=== PATIENT | female | born 1950 | race Caucasian/White ===

== ENCOUNTER 2016-09-28 16:05 | Outpatient (CLI) | payer MEDICAID, MEDICARE | END 2016-09-28 16:06 | disposition home or self-care (01) | DX: M17.0 Bilateral primary osteoarthritis of knee (principal) ==

== ENCOUNTER 2018-11-09 11:09 | Outpatient (CLI) | payer MEDICARE ==
--- NOTE | 2018-11-09 12:11 | XRAY Report ---
Reason: MODERATE PERSISTENT ASTHMA Procedure Date: 11/09/2018 Accession Number: [id number] / [id number] Procedure: XR - Chest 2 View X-Ray CPT Code: 69074 FULL RESULT: EXAM: CHEST RADIOGRAPHY EXAM DATE: 11/09/2018 11:20 AM. CLINICAL HISTORY: Moderate persistent asthma. COMPARISON: CHEST 2 VIEW PA/LAT 08/18/2014 3:59 PM. TECHNIQUE: 2 views. FINDINGS: Examination sensitivity for lung pathology is limited by grid artifact. Lungs/Pleura: No focal opacities evident. No pleural effusion. No pneumothorax. Normal volumes. Mediastinum: Heart and mediastinal contours are stable, mild borderline cardiomegaly. Other: None. IMPRESSION: No acute cardiopulmonary abnormality. RADIA
== END 2018-11-09 11:10 | disposition home or self-care (01) ==
LOC: DI 11:09
PROVIDERS: ATTEND Physician Assistant
DX: J45.40 Moderate persistent asthma, uncomplicated (principal)
CPT/HCPCS: 71046

== ENCOUNTER 2021-10-18 17:00 | Outpatient (CLI) | payer MEDICARE ==
--- NOTE | 2021-10-18 17:55 | XRAY Report ---
PROCEDURE: Chest 2 View X-Ray INDICATIONS: COUGH TECHNIQUE: 2 view(s) of the chest. COMPARISON: 11/09/2018 FINDINGS: Surgical changes and devices: None. Lungs and pleura: No pleural effusions or pneumothorax. Lungs are clear. Mediastinum: Mediastinal contours are normal. Heart size is normal. Bones and chest wall: No suspicious bony abnormalities. Soft tissues appear unremarkable. IMPRESSION: No evidence acute pulmonary process. Reviewed by: Nikita Vernon MD on 10/18/2021 5:54 PM PDT Approved by: Nikita Vernon MD on 10/18/2021 5:54 PM PDT Station ID: [id number]
[2021-10-18 20:14] LABS: BASOPHILS # (AUTO) 0.1 10^3/uL (0.0-0.1); BASOPHILS % (AUTO) 0.7 %; EOSINOPHILS # (AUTO) 0.2 10^3/uL (0.0-0.7); EOSINOPHILS % (AUTO) 3.5 %; HCT - HEMATOCRIT 39.8 % (37.0-47.0); HGB - HEMOGLOBIN 12.5 g/dL (12.0-16.0); LYMPHOCYTES # (AUTO) 1.3 10^3/uL (1.5-3.5); LYMPHOCYTES % (AUTO) 19.2 %; MEAN CORPUSCULAR HEMOGLOBIN 32.4 pg (27.0-31.0); MEAN CORPUSCULAR HGB CONC 31.4 g/dL (32.0-36.0); MEAN CORPUSCULAR VOLUME 103.1 fL (81.0-99.0); MEAN PLATELET VOLUME 9.9 fL (7.9-10.8); MONOCYTES # (AUTO) 0.7 10^3/uL (0.0-1.0); MONOCYTES % (AUTO) 10.4 %; NEUTROPHILS # (AUTO) 4.5 10^3/uL (1.5-6.6); NEUTROPHILS % (AUTO) 65.6 %; PLT - PLATELET COUNT 353 10^3/uL (130-450); RED BLOOD COUNT 3.86 10^6/uL (4.20-5.40); RED CELL DISTRIBUTION WIDTH 12.8 % (12.0-15.0); WHITE BLOOD COUNT 6.9 x10^3/uL (4.8-10.8)
== END 2021-10-18 17:01 | disposition home or self-care (01) ==
LOC: LAB.S 17:00
PROVIDERS: ATTEND Nurse Practitioner Family
DX: R05.9 Cough, unspecified (principal)
CPT/HCPCS: 36415; 85025

== ENCOUNTER 2021-12-22 10:36 | Outpatient (CLI) | payer MEDICARE ==
[2021-12-22 14:26] LABS: BASOPHILS % (AUTO) 0.7 %; EOSINOPHILS # (AUTO) 0.3 10^3/uL (0.0-0.7); HCT - HEMATOCRIT 39.2 % (37.0-47.0); HGB - HEMOGLOBIN 12.7 g/dL (12.0-16.0); LYMPHOCYTES % (AUTO) 17.5 %; MEAN CORPUSCULAR HEMOGLOBIN 32.1 pg (27.0-31.0); MEAN CORPUSCULAR HGB CONC 32.4 g/dL (32.0-36.0); MEAN PLATELET VOLUME 10.6 fL (7.9-10.8); MONOCYTES # (AUTO) 0.4 10^3/uL (0.0-1.0); MONOCYTES % (AUTO) 6.5 %; NEUTROPHILS # (AUTO) 3.9 10^3/uL (1.5-6.6); NEUTROPHILS % (AUTO) 68.1 %; PLT - PLATELET COUNT 296 10^3/uL (130-450); RED BLOOD COUNT 3.96 10^6/uL (4.20-5.40); RED CELL DISTRIBUTION WIDTH 13.4 % (12.0-15.0); WHITE BLOOD COUNT 5.7 x10^3/uL (4.8-10.8)
[2021-12-22 14:44] LABS: ALBUMIN 4.2 g/dL (3.2-5.5); ALBUMIN/GLOBULIN RATIO 1.6 (1.0-2.2); ALKALINE PHOSPHATASE 48 IU/L (42-121); ALT ALANINE AMINOTRANSFERASE 14 IU/L (10-60); AST ASPARTATE AMINOTRANSFERASE 18 IU/L (10-42); BUN - BLOOD UREA NITROGEN 21 mg/dL (6-20); CALCIUM 9.5 mg/dL (8.5-10.3); CARBON DIOXIDE - CO2 30 mmol/L (21-32); CHLORIDE 99 mmol/L (101-111); CHOL/HDL RATIO 3.2 (<4.4); CHOLESTEROL 232 mg/dL; CREATININE 0.8 mg/dL (0.4-1.0); GAMMA GLUTAMYL TRANSPEPTIDASE 15 IU/L (8-38); GFR - MDRD 71 (>89); GLUCOSE 124 mg/dL (70-100); HDL CHOLESTEROL 73 mg/dL; LDL CHOLESTEROL,CALCULATED 133 mg/dL; LDL/HDL RATIO 1.8 (<4.4); POTASSIUM 4.1 mmol/L (3.5-5.0); SODIUM 135 mmol/L (135-145); TOTAL PROTEIN 6.9 g/dL (6.7-8.2); TRIGLYCERIDES 130 mg/dL; VLDL CHOLESTEROL 26 mg/dL
[2021-12-22 14:58] LABS: THYROID STIMULATING HORMONE 1.63 uIU/mL (0.34-5.60)
[2021-12-22 15:06] LABS: FOLATE 10.22 ng/mL (5.90 - >24.8)
[2021-12-22 20:46] LABS: ESTIMATED AVERAGE GLUCOSE 108 mg/dL (70-100); HEMOGLOBIN A1c% 5.4 % (4.27-6.07)
== END 2021-12-22 10:37 | disposition home or self-care (01) ==
LOC: LAB.S 10:36
PROVIDERS: ATTEND Nurse Practitioner Family
DX: I10 Essential (primary) hypertension (principal); E03.9 Hypothyroidism, unspecified; R73.01 Impaired fasting glucose; E78.2 Mixed hyperlipidemia; D53.9 Nutritional anemia, unspecified; R05.9 Cough, unspecified
CPT/HCPCS: 36415; 80053; 80061; 82607; 82746; 82977; 83036; 83721; 84443; 85025

== ENCOUNTER 2022-03-02 13:24 | Outpatient (CLI) | payer MEDICARE ==
--- NOTE | 2022-03-08 10:06 | Mammography Report ---
BILATERAL DIGITAL SCREENING MAMMOGRAM 3D/2D: 03/02/2022 CLINICAL: Routine screening. Family history of breast cancer. Comparison is made to exam dated: 08/23/2008 mammogram - [facility]. Both breasts are almost entirely fatty (category a/<25% glandular tissue). There are benign vascular calcifications in both breasts. No significant masses, calcifications, or other findings are seen in either breast. There has been no significant interval change. IMPRESSION: BENIGN There is no mammographic evidence of malignancy. A 1 year screening mammogram is recommended. Based on the Tyrer Cuzick model (a risk assessment model) the patients lifetime risk is 2.5% and her 10 year risk is 1.7%. According to the ACR, ACS, and NCCN guidelines, an annual breast MRI exam connor g with mammogram is recommended if the patients lifetime risk is 20% or greater. This exam was interpreted at Station ID: [id number]. NOTE: For mammograms, a report in lay terms will be sent to the patient. Approximately 15% of breast malignancies will not be visualized mammographically. In the management of a palpable breast mass, a negative mammogram must not discourage biopsy of a clinically suspicious lesion. Electronically Signed By: Olamide rivero/kourtney:03/08/2022 09:39:44 ACR BI-RADS Category 2: Benign Finding(s) 3342F PARENCHYMAL PATTERN: (F) - The breast(s) demonstrate(s) diffuse fatty replacement. BI-RADS CATEGORY: (2) - 2 RECOMMENDATION: (ANNUAL) - Recommend routine annual screening mammography. [id number] 1 year screening LATERALITY: (B)
== END 2022-03-02 13:25 | disposition home or self-care (01) ==
LOC: DI.S 13:24
PROVIDERS: ATTEND Nurse Practitioner Family
DX: Z12.31 Encounter for screening mammogram for malignant neoplasm of breast (principal); Z80.3 Family history of malignant neoplasm of breast

== ENCOUNTER 2022-03-02 13:45 | Outpatient (CLI) | payer MEDICARE ==
--- NOTE | 2022-03-02 18:37 | XRAY Report ---
PROCEDURE: Knee 3 View BILAT INDICATIONS: BILATERAL KNEE PAIN TECHNIQUE: 3 views of each knee were obtained COMPARISON: None. FINDINGS: Bones: On the right, there is severe medial compartment joint space narrowing with marginal osteophy deandre and subchondral sclerosis. Moderate patellofemoral joint space and narrowing noted as well. Moder ate joint effusion. On the left, severe medial and moderate lateral compartmental joint space narrowing with marginal ost eophytes. Moderate joint effusion and mild patellofemoral joint space narrowing. Soft tissues: No joint effusion. No suspicious soft tissue calcifications. IMPRESSION: Moderate to severe bilateral osteoarthritis with moderate joint effusions, greater in the left Reviewed by: Romel New MD on 03/02/2022 5:36 PM AKPASTORA Approved by: Romel New MD on 03/02/2022 5:36 PM AKPASTORA Station ID: [id number]
== END 2022-03-02 23:59 | disposition home or self-care (01) ==
LOC: DI 13:45
PROVIDERS: ATTEND Nurse Practitioner Family
DX: M17.0 Bilateral primary osteoarthritis of knee (principal); M25.462 Effusion, left knee; M25.461 Effusion, right knee

== ENCOUNTER 2022-10-24 13:45 | Outpatient (CLI) | payer MEDICARE | END 2022-10-24 13:46 | disposition critical access hospital (66) | LOC: EMS 13:45 | DX: R06.09 Other forms of dyspnea (principal); R50.9 Fever, unspecified | CPT/HCPCS: A0425; A0427 ==

== ENCOUNTER 2022-10-24 13:54 | Emergency (ER) | payer MEDICARE ==
[2022-10-24 14:07] VITALS: BP 195/84
[2022-10-24] MEDS ORDERED: ALBUTEROL NEB 2.5 MG/3 ML INH STA (14:07)
--- NOTE | 2022-10-24 14:09 | ED Physician Documentation ---
PD HPI DYSPNEA - Stated complaint Stated Complaint: ASTHMA - Chief complaint Chief Complaint: Resp - History obtained from History obtained from: Patient - Additional information Additional information: 71-year-old woman with chronic asthma presents with what she thinks is an exacerbation. Her grandkids got sick a few days ago with a respiratory infection and then she started to get a cough with increasing shortness of breath feeling like her prior asthma. She takes Advair chronically and also has a rescue nebulizer which did not offer any relief. She denies pedal edema or calf pain. There is no chest pain with it. No fevers. On the way here she got a DuoNeb with modest relief of her symptoms. She denies other heart or lung problems. PD PAST MEDICAL HISTORY - Past Medical History Cardiovascular: Hypertension Respiratory: Asthma, Pneumonia - Past Surgical History Past Surgical History: Yes - Present Medications Home Medications: Ambulatory Orders Medication Instructions Recorded Confirmed Albuterol Sulfate [Albuterol 2 puffs IH Q4HR PRN #1 hfa.aer.ad 08/18/14 10/24/22 Sulfate Hfa] Citalopram Hydrobromide 40 mg PO DAILY 10/24/22 10/24/22 [Citalopram HBr] Fluticasone/Salmeterol [Advair 1 puffs IH DAILY 10/24/22 10/24/22 500-50 Diskus] Furosemide [Lasix] 20 mg PO DAILY #3 tablet 10/24/22 Gabapentin [Neurontin] 600 mg PO TID 10/24/22 10/24/22 Levothyroxine [Synthroid] 125 mcg PO QDAC 10/24/22 10/24/22 Losartan Potassium [Cozaar] 100 mg PO DAILY 10/24/22 10/24/22 Meloxicam [Mobic] 15 mg PO DAILY 10/24/22 10/24/22 Montelukast [Singulair] 10 mg PO QPM 10/24/22 10/24/22 Potassium Chloride 20 meq PO DAILY #3 tab 10/24/22 predniSONE [Deltasone] 20 mg PO [id number] #21 tab 10/24/22 - Allergies Allergies/Adverse Reactions: Allergies Allergy/AdvReac Type Severity Reaction Status Date / Time amoxicillin trihydrate * Allergy Nausea Verified 10/24/22 14:07 [From Augmentin] potassium clavulanate * Allergy Nausea Verified 10/24/22 14:07 [From Augmentin] - Social History Does the pt smoke?: No Smoking Status: Never smoker Does the pt drink ETOH?: Yes Does the pt have substance abuse?: No PD ED PE NORMAL - Vitals Vital signs reviewed: Yes - General General: Alert and oriented X 3, No acute distress - Neck Neck: Supple, no meningeal sign, No bony TTP - Cardiac Cardiac: RRR, No murmur - Respiratory Respiratory: Other (Nonlabored with mild crackles at both bases but really no wheezing.) - Abdomen Abdomen: Non tender - Extremities Extremities: No edema, No calf tenderness / cord - Neuro Neuro: Alert and oriented X 3, Normal speech Results - Vitals Vitals: Vital Signs - 24 hr 10/24/22 10/24/22 14:01 14:21 Temperature 37.7 C Heart Rate 82 77 Respiratory 20 22 Rate Blood Pressure 195/84 H O2 Saturation 94 Oxygen O2 Source Room air - EKG (time done) 1507 EKG releavant findings:: EKG personally interpreted by author of this note. Relevant findings are: Rate: Rate (enter#) (80) Rhythm: NSR, LAE [place]: Normal Intervals: Normal RI QRS: Normal Ischemia: Normal ST segments - Labs Labs: Laboratory Tests 10/24/22 10/24/22 10/24/22 14:15 14:15 14:15 WBC 8.3 RBC 4.18 L Hgb 13.1 Hct 41.1 MCV 98.3 MCH 31.3 H MCHC 31.9 L RDW 13.0 Plt Count 282 MPV 10.2 Neut # (Auto) 6.6 Lymph # (Auto) 0.6 L Rhea # (Auto) 1.0 Eos # (Auto) 0.1 Baso # (Auto) 0.0 Absolute Nucleated RBC 0.00 Nucleated RBC % 0.0 Sodium 137 Potassium 3.4 L Chloride 101 Carbon Dioxide 26 Anion Gap 10.0 BUN 22 H Creatinine 0.5 Estimated GFR (MDRD) 122 Glucose 117 H Calcium 8.9 B-Natriuretic Peptide 214 H - Rads (name of study) single view chest x-ray demonstrates cardiomegaly with increased vascularity Relevant Findings:: Final report received, EMP independent interpretation of test PD Medical Decision Making - ED course ED course: 71-year-old woman presents with shortness of breath and presumed asthma. She does not appear fluid overloaded but her examination is not particularly consistent with asthma, more some crackles at the bases. She did get some relief with breathing treatments. But given the unclear diagnosis I wanted to expand the work-up a bit and we did a chest x-ray and a BNP with which were suggestive of mild CHF. Her vital signs were okay so I think she can be discharged. When discussing the cause of her acute CHF with her she admits that she stopped taking her losartan which she was taking a dose of 100 mg a day about 5 days ago so the timing fits. We will restart her losartan and a few days worth of Lasix and potassium supplementation. She would like a prescription for prednisone anyway. Departure - Departure Disposition: Home, Self Care Clinical Impression: Congestive heart failure Qualifiers: Heart failure type: systolic Heart failure chronicity: acute Qualified Code(s): I50.21 - Acute systolic (congestive) heart failure Condition: Good Record reviewed to determine appropriate education?: Yes Instructions: ED CHF General Prescriptions: predniSONE [Deltasone] 20 mg PO [id number] #21 tab Furosemide [Lasix] 20 mg PO DAILY #3 tablet Potassium Chloride 20 meq PO DAILY #3 tab Comments: As discussed, based on your examination, chest x-ray, and a marker known as BNP being elevated I suspect the main cause of your shortness of breath today is actually congestive heart failure related to the uncontrolled hypertension of not taking your losartan for the last few days. You should restart your losartan, we did give you a first dose today, so I do not need to take it until tomorrow. I am also giving you 3 days worth of a diuretic. This should be helpful as well. Per your request I am giving you a just in case prescription for prednisone. You should follow-up with your primary care physician, next available appointment. I suspect they will want to do further testing such as an echocardiogram. Call for the next available appointment. Return if worse. I am prescribing a potassium supplement along with the diuretic as the diuretic tends to take potassium out of your system.
[2022-10-24 14:23] LABS: BASOPHILS % (AUTO) 0.5 %; EOSINOPHILS # (AUTO) 0.1 10^3/uL (0.0-0.7); EOSINOPHILS % (AUTO) 0.7 %; HCT - HEMATOCRIT 41.1 % (37.0-47.0); HGB - HEMOGLOBIN 13.1 g/dL (12.0-16.0); LYMPHOCYTES # (AUTO) 0.6 10^3/uL (1.5-3.5); LYMPHOCYTES % (AUTO) 7.1 %; MEAN CORPUSCULAR HEMOGLOBIN 31.3 pg (27.0-31.0); MEAN CORPUSCULAR HGB CONC 31.9 g/dL (32.0-36.0); MEAN CORPUSCULAR VOLUME 98.3 fL (81.0-99.0); MEAN PLATELET VOLUME 10.2 fL (7.9-10.8); MONOCYTES % (AUTO) 11.8 %; NEUTROPHILS # (AUTO) 6.6 10^3/uL (1.5-6.6); NEUTROPHILS % (AUTO) 79.2 %; PLT - PLATELET COUNT 282 10^3/uL (130-450); RED BLOOD COUNT 4.18 10^6/uL (4.20-5.40); WHITE BLOOD COUNT 8.3 x10^3/uL (4.8-10.8)
[2022-10-24 14:31] LABS: CALCIUM 8.9 mg/dL (8.5-10.3); CREATININE 0.5 mg/dL (0.4-1.0); POTASSIUM 3.4 mmol/L (3.5-5.0)
--- NOTE | 2022-10-24 14:45 | XRAY Report ---
PROCEDURE: Chest 1 View X-Ray INDICATIONS: dyspnea TECHNIQUE: One view of the chest was acquired. COMPARISON: Chest x-ray 10/18/2021 FINDINGS: Surgical changes and devices: None. Lungs and pleura: There is an overall appearance of increased pulmonary vascularity. Minimal left eff usion. Mediastinum: Mediastinal contours appear normal. Heart size is enlarged. Bones and chest wall: No suspicious bony lesions. Overlying soft tissues appear unremarkable. IMPRESSION: Cardiomegaly with increased vascularity and minimal effusion most consistent with edema. Reviewed by: Yessenia Mascorro MD on 10/24/2022 2:44 PM PDT Approved by: Yessenia Mascorro MD on 10/24/2022 2:44 PM PDT Station ID: [id number]
[2022-10-24] MEDS ORDERED: POTASSIUM BICARB 25 MEQ TABLET PO STA (15:13)
[2022-10-24] MEDS ORDERED: FUROSEMIDE 20 MG TABLET PO STA (15:13)
[2022-10-25] MEDS ORDERED: LOSARTAN 50 MG TABLET PO SCH (09:00)
== END 2022-10-24 15:31 | disposition home or self-care (01) ==
LOC: EDUNIT# → ED 13:54
DX: I11.0 Hypertensive heart disease with heart failure (principal); I50.21 Acute systolic (congestive) heart failure
CPT/HCPCS: 36415; 71045; 80048; 83880; 85025; 93005; 94640; 94664; 99284; A9270

== ENCOUNTER 2023-10-13 11:01 | Outpatient (CLI) | payer MEDICARE ==
--- NOTE | 2023-10-16 08:09 | Mammography Report ---
BILATERAL DIGITAL SCREENING MAMMOGRAM 3D/2D: 10/13/2023 CLINICAL: Routine screening. Comparison is made to exam dated: 03/02/2022 mammogram - [facility]. There are scattered areas of fibroglandular density in both breasts (category b / 25%-50% glandular t issue). There are benign vascular calcifications in both breasts. No significant masses, calcifications, or other findings are seen in either breast. There has been no significant interval change. IMPRESSION: BENIGN There is no mammographic evidence of malignancy. A 1 year screening mammogram is recommended. Based on the Tyrer Cuzick model (a risk assessment model) the patient's lifetime risk is 3.6% and her 10 year risk is 2.7%. According to the ACR, ACS, and NCCN guidelines, an annual breast MRI exam connor g with mammogram is recommended if the patient's lifetime risk is 20% or greater. This exam was interpreted at Station ID: [id number]. NOTE: For mammograms, a report in lay terms will be sent to the patient. Approximately 15% of breast malignancies will not be visualized mammographically. In the management of a palpable breast mass, a negative mammogram must not discourage biopsy of a clinically suspicious lesion. Electronically Signed By: Milagros mcintyre/kourtney:10/13/2023 12:31:45 letter sent: No_Letter ACR BI-RADS Category 2: Benign Finding(s) 3342F PARENCHYMAL PATTERN: (A) - The breast(s) demonstrate(s) scattered fibroglandular densities. BI-RADS CATEGORY: (2) - 2 RECOMMENDATION: (ANNUAL) - Recommend routine annual screening mammography. [id number] 1 year screening LATERALITY: (B)
== END 2023-10-13 11:02 | disposition home or self-care (01) ==
LOC: DI 11:01
PROVIDERS: ATTEND Nurse Practitioner Family
DX: Z12.31 Encounter for screening mammogram for malignant neoplasm of breast (principal); R92.323 Mammographic fibroglandular density, bilateral breasts

== ENCOUNTER 2023-10-13 11:03 | Outpatient (CLI) | payer MEDICARE ==
--- NOTE | 2023-10-13 13:39 | Ultrasound Report ---
PROCEDURE: Soft Tissue Head or Neck INDICATIONS: SENSATION OF LUMP WHEN SWALLOWING TECHNIQUE: Real-time scanning was performed of the thyroid gland, with image documentation. COMPARISON: None FINDINGS: Right: Thyroid lobe measures 3.2 x 1.9 x 2.1 cm, and is homogeneous in echotexture. Left: Thyroid lobe measures 3.7 x 1.1 x 1.3 cm, and is homogenous in echotexture. Isthmus: 0.6 cm thick. IMPRESSION: No thyroid nodules. No masses are seen within the area of concern. ACR TI-RADS definitions and recommendations: TI-RADS 1 (benign): 0 points. FNA not needed. TI-RADS 2 (not suspicious): 2 points. FNA not needed. TI-RADS 3 (mildly suspicious): 3 points. "FNA if 2.5 cm or larger, follow up if 1.5 cm or larger (at 1, 3, and 5 years). TI-RADS 4 (moderately suspicious): 4-6 points. "FNA if 1.5 cm or larger, follow up if 1 cm or larger (at 1, 2, 3, and 5 years). TI-RADS 5 (highly suspicious): 7 points or more. "FNA if 1 cm or larger, follow up if 0.5 cm or larger (every year for 5 years). Reviewed by: Khari Kilpatrick MD on 10/13/2023 1:37 PM PDT Approved by: Khari Kilpatrick MD on 10/13/2023 1:37 PM PDT Station ID: [id number]
== END 2023-10-13 11:04 | disposition home or self-care (01) ==
LOC: DI 11:03
PROVIDERS: ATTEND Nurse Practitioner Family
DX: R09.89 Other specified symptoms and signs involving the circulatory and respiratory systems (principal)

== ENCOUNTER 2024-01-04 12:15 | Inpatient (IN) | payer MEDICARE ==
--- NOTE | 2024-01-04 13:09 | ED Physician Documentation ---
History of Present Illness - Stated complaint Stated Complaint: GI,NAUSEA,CHILLS - Chief complaint Chief Complaint: General - Additonal information Additional information: 73-year-old female with history of asthma, eczema, pneumonia, depression, hypertension, hypothyroidism presents emergency department for nausea vomiting fevers chills. Patient said that on Monday she started to feel unwell and had multiple episodes of diarrhea about 5 episodes that first day she felt like it started to slow down again on Monday and then has started to pick back up again. She said no diarrhea today but she feels very fatigued and tired. No abdominal pain no dysuria urinary urgency or frequency no back pain. No recent changes in medications or supplements no new food no one else in the household is sick. No recent hospitalizations or [facility] facility stays. PD PAST MEDICAL HISTORY - Past Medical History Cardiovascular: Hypertension Respiratory: Asthma, Pneumonia Psych: Depression - Past Surgical History Past Surgical History: Yes - Present Medications Home Medications: Ambulatory Orders Medication Instructions Recorded Confirmed Albuterol Sulfate [Albuterol 2 puffs IH Q4HR PRN #1 hfa.aer.ad 08/18/14 10/24/22 Sulfate Hfa] Citalopram Hydrobromide 40 mg PO DAILY 10/24/22 10/24/22 [Citalopram HBr] Fluticasone Propion/Salmeterol 1 puffs IH DAILY 10/24/22 10/24/22 [Advair 500-50 Diskus] Furosemide [Lasix] 20 mg PO DAILY #3 tablet 10/24/22 Gabapentin [Neurontin] 600 mg PO TID 10/24/22 10/24/22 Levothyroxine [Synthroid] 125 mcg PO QDAC 10/24/22 10/24/22 Losartan Potassium [Cozaar] 100 mg PO DAILY 10/24/22 10/24/22 Meloxicam [Mobic] 15 mg PO DAILY 10/24/22 10/24/22 Montelukast [Singulair] 10 mg PO QPM 10/24/22 10/24/22 Potassium Chloride 20 meq PO DAILY #3 tab 10/24/22 predniSONE [Deltasone] 20 mg PO [id number] #21 tab 10/24/22 - Allergies Allergies/Adverse Reactions: Allergies Allergy/AdvReac Type Severity Reaction Status Date / Time amoxicillin trihydrate * Allergy Nausea Verified 01/04/24 12:31 [From Augmentin] potassium clavulanate * Allergy Nausea Verified 01/04/24 12:31 [From Augmentin] - Social History Does the pt smoke?: No Smoking Status: Never smoker Does the pt drink ETOH?: Yes Does the pt have substance abuse?: No - Immunizations Immunizations are current?: No - POLST Patient has POLST: No PD ED PE NORMAL - Vitals Vital signs reviewed: Yes - General General: Alert and oriented X 3, No acute distress, Well developed/nourished - HEENT HEENT: Atraumatic, PERRL - Cardiac Cardiac: RRR - Respiratory Respiratory: No respiratory distress - Abdomen Abdomen: Normal bowel sounds, Soft, Non tender, Non distended, No organomegaly - Back Back: No CVA TTP - Derm Derm: Normal color, Warm and dry, No rash - Extremities Extremities: No deformity, No edema, No calf tenderness / cord Results - Vitals Vitals: Vital Signs - 24 hr 01/04/24 01/04/24 01/04/24 12:25 14:15 15:35 Temperature 36.3 C L 36 C L Heart Rate 64 64 66 Respiratory 18 16 16 Rate Blood Pressure 132/63 H 172/74 H 147/66 H O2 Saturation 100 98 100 Oxygen O2 Source Room air - Labs Labs: Microbiology 01/04/24 13:50 Occult Blood - Final Stool Laboratory Tests 01/04/24 01/04/24 01/04/24 13:11 13:11 13:11 WBC 6.7 RBC 2.87 L Hgb 8.3 L Hct 26.2 L MCV 91.3 MCH 28.9 MCHC 31.7 L RDW 13.8 Plt Count 276 MPV 11.0 H Neut # (Auto) 4.9 Lymph # (Auto) 1.2 L [place] # (Auto) 0.4 Eos # (Auto) 0.1 Baso # (Auto) 0.0 Absolute Nucleated RBC 0.00 Nucleated RBC % 0.0 Sodium 138 Potassium 3.6 Chloride 106 Carbon Dioxide 26 Anion Gap 6.0 BUN 39 H Creatinine 0.7 Estimated GFR (MDRD) 82 L Glucose 113 H Calcium 9.3 Magnesium 1.7 Total Bilirubin 0.4 AST 7 L ALT 5 L Alkaline Phosphatase 49 Total Protein 6.0 L Albumin 3.9 Globulin 2.1 Albumin/Globulin Ratio 1.9 Lipase 38 Nasal Adenovirus (PCR) Nasal B. parapertussis DNA (PCR) Nasal Coronavir 229E PCR Nasal Coronavir HKU1 PCR Nasal Coronavir NL63 PCR Nasal Coronavir OC43 PCR Nasal Enterovir/Rhinovir PCR Nasal Influenza B PCR Nasal Influenza A PCR Nasal Parainfluen 1 PCR Nasal Parainfluen 2 PCR Nasal Parainfluen 3 PCR Nasal Parainfluen 4 PCR Nasal RSV (PCR) Nasal B.pertussis DNA PCR Nasal C.pneumoniae (PCR) [place] Human Metapneumo PCR Nasal M.pneumoniae (PCR) Nasal SARS-CoV-2 (PCR) Stl C. diff Tox B Gene Blood Type Recheck A POSITIVE 01/04/24 01/04/24 13:15 13:50 WBC RBC Hgb Hct MCV MCH MCHC RDW Plt Count MPV Neut # (Auto) Lymph # (Auto) [place] # (Auto) Eos # (Auto) Baso # (Auto) Absolute Nucleated RBC Nucleated RBC % Sodium Potassium Chloride Carbon Dioxide Anion Gap BUN Creatinine Estimated GFR (MDRD) Glucose Calcium Magnesium Total Bilirubin AST ALT Alkaline Phosphatase Total Protein Albumin Globulin Albumin/Globulin Ratio Lipase Nasal Adenovirus (PCR) NOT DETECTED Nasal B. parapertussis DNA (PCR) NOT DETECTED Nasal Coronavir 229E PCR NOT DETECTED Nasal Coronavir HKU1 PCR NOT DETECTED Nasal Coronavir NL63 PCR NOT DETECTED Nasal Coronavir OC43 PCR NOT DETECTED Nasal Enterovir/Rhinovir PCR NOT DETECTED Nasal Influenza B PCR NOT DETECTED Nasal Influenza A PCR NOT DETECTED Nasal Parainfluen 1 PCR NOT DETECTED Nasal Parainfluen 2 PCR NOT DETECTED Nasal Parainfluen 3 PCR NOT DETECTED Nasal Parainfluen 4 PCR NOT DETECTED Nasal RSV (PCR) NOT DETECTED Nasal B.pertussis DNA PCR NOT DETECTED Nasal C.pneumoniae (PCR) NOT DETECTED [place] Human Metapneumo PCR NOT DETECTED Nasal M.pneumoniae (PCR) NOT DETECTED Nasal SARS-CoV-2 (PCR) NOT DETECTED Stl C. diff Tox B Gene NEGATIVE Blood Type Recheck - Rads (name of study) CT abdomen pelvis with contrast Relevant Findings:: Final report received, EMP independent interpretation of test, Other (Possible duodenitis possible mild bladder wall thickening) PD Medical Decision Making - ED course ED course: 73-year-old female presents emergency department for generalized malaise and frequent episodes of diarrhea. Upon further interviewing evaluation patient reports that her bowel movements have been melanotic. Labs are complete for further evaluation and she does appear to have a low hemoglobin of 8.3. Last hemoglobin was done about a year ago and patient was found to be in therapeutic range. She denies any blood in emesis. BUN elevated at 39 most likely due to dehydration, respiratory panel negative C. difficile panel negative. CT abdomen pelvis is complete for further evaluation and she appears to have possible duodenitis CT reading says possible early or partial small bowel obstruction versus ileus but patient is having multiple episodes of diarrhea so this is very unlikely. Patient has no UTI symptoms although CT shows possible mild bladder wall thickening. I spoke with Dr. Cooper about patient's low hemoglobin and positive stool guaiac and he does not believe that an urgent endoscopy is warranted at this point in time. Patient was given 80 mg of IV Prilosec for GI bleed I then spoke with hospitalist Dr. Keene and she agrees that patient should be admitted for hemoglobin and hematocrit monitoring as patient is feeling very ill and generalized malaise. She was given 1 L of IV fluids with little to no relief. Patient is agreeable to stay in the hospital overnight for observation Departure - Departure Disposition: [facility] [place] DC/Xfer Clinical Impression: Duodenitis, Melena Anemia Qualifiers: Anemia type: unspecified type Qualified Code(s): D64.9 - Anemia, unspecified Discharge Date/Time: 01/04/24 18:54
[2024-01-04] MEDS: SODIUM CHLORIDE 0.9% 1,000 ML IV ONE (13:13)
[2024-01-04 13:17] LABS: BASOPHILS % (AUTO) 0.5 %; EOSINOPHILS # (AUTO) 0.1 10^3/uL (0.0-0.7); EOSINOPHILS % (AUTO) 1.5 %; HCT - HEMATOCRIT 26.2 % (37.0-47.0); HGB - HEMOGLOBIN 8.3 g/dL (12.0-16.0); LYMPHOCYTES # (AUTO) 1.2 10^3/uL (1.5-3.5); LYMPHOCYTES % (AUTO) 18.3 %; MEAN CORPUSCULAR HEMOGLOBIN 28.9 pg (27.0-31.0); MEAN CORPUSCULAR HGB CONC 31.7 g/dL (32.0-36.0); MEAN CORPUSCULAR VOLUME 91.3 fL (81.0-99.0); MONOCYTES # (AUTO) 0.4 10^3/uL (0.0-1.0); MONOCYTES % (AUTO) 5.6 %; NEUTROPHILS # (AUTO) 4.9 10^3/uL (1.5-6.6); NEUTROPHILS % (AUTO) 73.8 %; PLT - PLATELET COUNT 276 10^3/uL (130-450); RED BLOOD COUNT 2.87 10^6/uL (4.20-5.40); RED CELL DISTRIBUTION WIDTH 13.8 % (12.0-15.0); WHITE BLOOD COUNT 6.7 x10^3/uL (4.8-10.8)
[2024-01-04 13:36] LABS: ALBUMIN 3.9 g/dL (3.2-5.5); ALBUMIN/GLOBULIN RATIO 1.9 (1.0-2.2); BILIRUBIN,TOTAL 0.4 mg/dL (0.2-1.0); CALCIUM 9.3 mg/dL (8.5-10.3); CREATININE 0.7 mg/dL (0.6-1.3); MAGNESIUM 1.7 mg/dL (1.7-2.3); POTASSIUM 3.6 mmol/L (3.5-4.5)
[2024-01-04 14:22] LABS: B. PARAPERTUSSIS- RESP PCR PAN NOT DETECTED; B. PERTUSSIS- RESP PCR PANEL NOT DETECTED; C. PNEUMONIAE- RESP PCR PANEL NOT DETECTED; CORONAVIRUS 229E-RESP PCR NOT DETECTED; CORONAVIRUS HKU1-RESP PCR NOT DETECTED; CORONAVIRUS NL63-RESP PCR NOT DETECTED; CORONAVIRUS OC43-RESP PCR NOT DETECTED; HUMAN METAPNEUMOVIRUS NOT DETECTED; INFLUENZA A- RESP PCR PANEL NOT DETECTED; INFLUENZA B - RESP PCR PANEL NOT DETECTED; M. PNEUMONIAE- RESP PCR PANEL NOT DETECTED; PARAINFLUENZA VIRUS 1 NOT DETECTED; PARAINFLUENZA VIRUS 2 NOT DETECTED; PARAINFLUENZA VIRUS 3 NOT DETECTED; PARAINFLUENZA VIRUS 4 NOT DETECTED; RHINOVIRUS/ENTEROVIRUS NOT DETECTED; RSV- RESP PCR PANEL NOT DETECTED; SARS-CoV-2 -RESP PCR PANEL NOT DETECTED
[2024-01-04] MEDS ORDERED: iohexoL-300 100 ML VIAL ONE (16:01)
[2024-01-04] MEDS: PANTOPRAZOLE 40 MG VIAL IVP STA (16:17)
[2024-01-04] MEDS: iohexoL-300 100 ML VIAL IVP ONE (16:18)
--- NOTE | 2024-01-04 17:24 | CT Report ---
PROCEDURE: Abdomen/Pelvis W INDICATIONS: +guiac CONTRAST: 100ml [id number] TECHNIQUE: After the administration of intravenous contrast, a CT scan of the abdomen and pelvis was performed. Images were recorded and evaluated at appropriate window settings. Reformats: coronal and sagittal. F or radiation dose reduction, the following was used: automated exposure control, adjustment of mA and /or kV according to patient size. COMPARISON: None. FINDINGS: Image quality: Diagnostic. Lower chest: Unremarkable. Liver: No solid mass. Gallbladder: Biliary tree: No intrahepatic or extrahepatic dilation, accounting for age. Spleen: No splenomegaly. Pancreas: No pancreatic ductal dilation. Adrenals: No adrenal nodule. Kidneys and ureters: No hydronephrosis. No renal cystic lesion which requires follow up. No solid mas s. Stomach, bowel and peritoneum: There are mildly dilated fluid-filled loops of small bowel in the mida bdomen raising the question of partial or early small bowel obstruction versus ileus. There is inflam matory change in the duodenal C-loop with wall edema present. There is subjacent inflammatory change in the fat. Findings suggest duodenitis. Diverticulosis is present without evidence of acute divertic ulitis. Sigmoid diverticulosis is moderate. Lymph nodes: No central or retroperitoneal adenopathy. Vessels: No infrarenal aortic aneurysm. Patent portal vein. PELVIS Reproductive organs: Unremarkable. Bladder: Question mild bladder wall thickening. Pelvic lymph nodes: No pelvic adenopathy by size criteria. Bones: No aggressive osseous abnormality. Other: No significant ventral or inguinal hernia. IMPRESSION: 1. Question duodenitis. 2. Findings consistent with early or partial small bowel obstruction versus ileus. 3. Question mild bladder wall thickening. Reviewed by: Nikita Vernon MD on 01/04/2024 5:22 PM PDT Approved by: Nikita Vernon MD on 01/04/2024 5:22 PM PDT Station ID: [id number]
[2024-01-04] MEDS ORDERED: HYDROmorphone 0.5 MG/0.5 ML SYRINGE IVP PRN (18:19)
[2024-01-04] MEDS ORDERED: ACETAMINOPHEN 325 MG TABLET PO PRN (18:19)
[2024-01-04] MEDS ORDERED: ONDANSETRON 4 MG/2 ML VIAL IVP PRN (18:19)
--- NOTE | 2024-01-04 18:26 | HISTORY & PHYSICAL EXAMINATION ---
Chief Complaint - Chief Complaint Chief Complaint: Weakness and diarrhea History of Present Illness - Admitted From Admitted From:: ED - History of Present Illness HPI Comment/Other: The patient is an extremely pleasant 73-year-old female who is morbidly obese. Her past medical history is significant for asthma, depression, hypertension and hypothyroidism. The patient states that she has been sick s [place] last Monday when she started having multiple episodes of black watery diarrhea. She states that she has been unable to take some of her medications that she has been nauseated and having dry heaves at home. She states that she had some fevers and chills at home as well. Today she was having continued diarrhea and her weakness was worsening so she presented to the emergency room for further evaluation and treatment. Workup in the emergency room revealed white blood cell count of 6.7, hemoglobin of 8.3. Her last recorded hemoglobin over a year ago was 13.1. Platelet level was 276. Chemistry panel was basically unremarkable other than a mildly elevated glucose level of 13. Creatinine was normal at 0.7 with a BUN of 39. Liver panel was unremarkable. The patient tested negative for C. difficile. Viral panel was negative. She had a CT scan of the abdomen and pelvis which revealed possible duodenitis. There were also findings consistent with an early partial small bowel obstruction or ileus. She also was noted to have mild bladder wall thickening. When I went to see her she is just feeling weak. She has had continued watery black diarrhea since she presented to the emergency room. She states that she takes meloxicam at home and has been supplementing with 800 mg of ibuprofen on a fairly regular basis along with her gabapentin. She states it has been difficult for her to take any of her medications recently due to the significant nausea over the past couple of days. History - Past Medical History Cardiovascular: reports: Hypertension Respiratory: reports: Asthma, Pneumonia Psych: reports: Depression Musculoskeletal: reports: Osteoarthritis Derm: reports: Eczema MRSA Hx?: No - Family & Social History Living Situation: With family - Substance History Use: Uses substance without health or social issues: NONE - POLST Patient has POLST: Yes POLST Status: DNR Meds/Allgy - Home Medications Home Medications: Ambulatory Orders Medication Instructions Recorded Confirmed Albuterol Sulfate [Albuterol 2 puffs IH Q4HR PRN #1 [email or web address] 08/18/14 10/24/22 Sulfate Hfa] Citalopram Hydrobromide 40 mg PO DAILY 10/24/22 10/24/22 [Citalopram HBr] Fluticasone Propion/Salmeterol 1 puffs IH DAILY 10/24/22 10/24/22 [Advair 500-50 Diskus] Furosemide [Lasix] 20 mg PO DAILY #3 tablet 10/24/22 Gabapentin [Neurontin] 600 mg PO TID 10/24/22 10/24/22 Levothyroxine [Synthroid] 125 mcg PO QDAC 10/24/22 10/24/22 Losartan Potassium [Cozaar] 100 mg PO DAILY 10/24/22 10/24/22 Meloxicam [Mobic] 15 mg PO DAILY 10/24/22 10/24/22 Montelukast [Singulair] 10 mg PO QPM 10/24/22 10/24/22 Potassium Chloride 20 meq PO DAILY #3 tab 10/24/22 predniSONE [Deltasone] 20 mg PO [id number] #21 tab 10/24/22 - Allergies Allergies/Adverse Reactions: Allergies Allergy/AdvReac Type Severity Reaction Status Date / Time amoxicillin trihydrate * Allergy Nausea Verified 01/04/24 12:31 [From Augmentin] potassium clavulanate * Allergy Nausea Verified 01/04/24 12:31 [From Augmentin] Review of Systems - Constitutional Constitutional: reports: Fatigue, Fever, Chills, Weakness - Cardiovascular Cariovascular: denies: Palpitations, Chest pain - Respiratory Respiratory: denies: Cough, Wheezing - Gastrointestinal Gastrointestinal: reports: Diarrhea, Black stools, Nausea, Vomiting, Bile emesis, Poor appetite. denies: Abdominal pain - Genitourinary Genitourinary: denies: Dysuria, Frequency, Urgency - Musculoskeletal Musculoskeletal: reports: Muscle pain, Back pain - Integumentary Integumentary: denies: Rash - Neurological Neurological: denies: Focal weakness - All Other Systems All Other Systems: reports: Reviewed and negative Prior Level of Functionality: The patient ambulates with a cane Exam - Vital Signs Reviewed Vital Signs: Yes Vital Signs: Vital Signs x48h Temp Pulse Resp BP Pulse Ox 01/04/24 15:35 36 C L 66 16 147/66 H 100 01/04/24 14:15 64 16 172/74 H 98 01/04/24 12:25 36.3 C L 64 18 132/63 H 100 - Physical Exam General Appearance: positive: Other (The patient is in no acute distress but looks weak and looks as if she feels poorly) Eyes Bilateral: positive: Normal inspection ENT: positive: ENT inspection nml Neck: positive: Nml inspection Respiratory: positive: Chest non-tender, No respiratory distress, Other (The patient's lungs are diminished throughout all lung harris) Cardiovascular: positive: Regular rate & rhythm, No murmur, No gallop. negative: Friction rub Peripheral Pulses: positive: 1+ Abdomen: positive: Non-tender. negative: Tenderness, Guarding, Rebound Skin: positive: Color nml, No rash, Warm Extremities: positive: Non-tender, Other (Venous stasis changes bilaterally. No edema) Neurologic/Psychiatric: positive: Oriented x3, CN's nml (2-12) Sepsis Event Note (H) - Evaluation Current Stage of Sepsis: Ruled out Conclusion/Plan - Problem List (1) Upper GI bleed Conclusion/Plan: The patient appears to be having an upper GI bleed. There was evidence of possible duodenitis noted on CT scan. She will be placed on 40 mg of IV Protonix twice daily. The emergency room provider spoke to general surgery who is aware of the patient. Will see how she does overnight and monitor her H&H is. Will make a decision as to whether to formally consult surgery in the morning. The rest of the plan of care will be outlined below (2) Acute blood loss anemia Conclusion/Plan: The patient has not had labs here but her most recent hemoglobin about a year ago was 13.1. She has been having black stools for the past several days and currently her hemoglobin is 8.1. Will trend serial troponins overnight and transfuse if she drops less than 7. She is not having dyspnea or dizziness and currently is asymptomatic. She just has weakness. For now she is maintaining her blood pressure. Will hold her losartan and monitor her blood pressure closely. The patient will be placed on Protonix 40 mg twice daily. Will see what her hemoglobin does overnight and we may need to get surgery involved. (3) Diarrhea Conclusion/Plan: Concerns for possible viral gastroenteritis. The patient states that she had fever and chills at home but has had no fevers here in the hospital. She has no evidence of colitis on CT imaging although she does have some bladder wall thickening. Will obtain a UA and urine culture. Will keep the patient on IV fluids for now. I do not believe she needs antibiotics at this time. (4) Asthma Conclusion/Plan: The patient has never smoked. She will continue her Advair here in the hospital. She will have as needed DuoNebs available as needed (5) Hypertension Conclusion/Plan: Fortunately she is not hypotensive at this time. She takes losartan at home which will be held for now. Continue to monitor her blood pressure quite closely in light of upper GI bleeding (6) Hypothyroidism Conclusion/Plan: Continue home dose of Synthroid 125 mcg daily (7) Moderate major depression Conclusion/Plan: Continue escitalopram 40 mg daily (8) Morbid obesity Conclusion/Plan: Weight loss is recommended through dietary modification and exercise as cayetano rated (9) Lower back pain Conclusion/Plan: I have no formal imaging studies however the patient ambulates with a cane and has had increasing pain. She previously was on meloxicam and has been taking 800 mg of ibuprofen on a regular basis which is likely the cause of her GI bleed. She likely has some degenerative disc disease. She will have Tylenol and hydrocodone available for pain and IV Dilaudid available for severe pain. (10) Ambulatory dysfunction Conclusion/Plan: Likely due to her morbid obesity and lower back pain. Will have physical therapy and Occupational Therapy evaluate the patient during this ho spitalization - Lab Results Fish Bones: 01/04/24 13:11 01/04/24 13:11 - Other Other Results/Comments: Disposition: The patient will be fully admitted to the hospital. At this point I expect her hospitalization to span greater than 2 midnights. The patient is having active upper GI bleeding and is having ongoing watery diarrhea. Timing of disposition will be determined by her clinical course. Time spent: 45 minutes
[2024-01-04] MEDS ORDERED: SODIUM CHLORIDE 0.9% 1,000 ML IV SCH (19:00)
[2024-01-04] MEDS: HYDROcod/ACETAM 5/325 MG TABLET PO PRN (19:38)
[2024-01-04] MEDS: SODIUM CHLORIDE FLUSH 0.9% 10 ML SYRINGE IVP PRN (19:39)
[2024-01-04] MEDS: SODIUM CHLORIDE 0.9% 1,000 ML IV SCH (19:39)
[2024-01-04] MEDS: PANTOPRAZOLE 40 MG VIAL IVP SCH (19:59)
[2024-01-04 20:20] LABS: HCT - HEMATOCRIT 22.9 % (37.0-47.0); HGB - HEMOGLOBIN 7.3 g/dL (12.0-16.0)
[2024-01-04] MEDS: FORMOTEROL FUMARATE NEB 20 MCG/2 ML INH SCH (20:50)
[2024-01-04] MEDS: BUDESONIDE 0.5 MG/2 ML NEB INH SCH (20:50)
[2024-01-04] MEDS: GABAPENTIN 300 MG CAPSULE PO SCH (21:18)
[2024-01-04 22:19] LABS: BILIRUBIN,URINE NEGATIVE (NEGATIVE); GLUCOSE, URINE (UA) NEGATIVE (NEGATIVE); KETONES,URINE (UA) NEGATIVE (NEGATIVE); LEUKOCYTE ESTERASE, URINE NEGATIVE (NEGATIVE); NITRITE,URINE NEGATIVE (NEGATIVE); OCCULT BLOOD,URINE TRACE-LYSE (NEGATIVE); PROTEIN,URINE NEGATIVE (NEGATIVE); UROBILINOGEN,URINE 0.2 (NORMAL) E.U./dL (NORMAL)
[2024-01-04 22:31] LABS: CLARITY,URINE HAZY (CLEAR)
[2024-01-04 22:32] LABS: BACTERIA,URINE Rare /HPF (None Seen); RBC,URINE 0-5 /HPF (0-5); SQUAMOUS EPITHELIAL CELL,UR FEW Squamous (<= Few); WBC,URINE 0-3 /HPF (0-5)
[2024-01-05] MEDS: SODIUM CHLORIDE FLUSH 0.9% 10 ML SYRINGE IVP SCH (01:38)
[2024-01-05 05:35] LABS: HCT - HEMATOCRIT 20.8 % (37.0-47.0)
[2024-01-05 05:42] LABS: HGB - HEMOGLOBIN 6.3 g/dL (12.0-16.0)
[2024-01-05] MEDS: LEVOTHYROXINE 125 MCG TABLET PO SCH (06:56)
--- NOTE | 2024-01-05 07:36 | CONSULTATION NOTE ---
Surgery Consult - Admit Date Hospital Admission Date: 01/04/24 - Consult Date Consult Date: 01/05/24 Requesting Provider: Nica Keene - Chief Complaint Chief Complaint: Melena, anemia - Home Meds/Allergies Home Medications: Patient History Medication Instructions Recorded Confirmed Citalopram Hydrobromide 40 mg PO DAILY 10/24/22 10/24/22 [Citalopram HBr] Fluticasone Propion/Salmeterol 1 puffs IH DAILY 10/24/22 10/24/22 [Advair 500-50 Diskus] Gabapentin [Neurontin] 600 mg PO TID 10/24/22 10/24/22 Levothyroxine [Synthroid] 125 mcg PO QDAC 10/24/22 10/24/22 Losartan Potassium [Cozaar] 100 mg PO DAILY 10/24/22 10/24/22 Meloxicam [Mobic] 15 mg PO DAILY 10/24/22 10/24/22 Montelukast [Singulair] 10 mg PO QPM 10/24/22 10/24/22 Allergies/Adverse Reactions: Allergies Allergy/AdvReac Type Severity Reaction Status Date / Time amoxicillin trihydrate * Allergy Nausea Verified 01/04/24 12:31 [From Augmentin] potassium clavulanate * Allergy Nausea Verified 01/04/24 12:31 [From Augmentin] - Vital Signs Vital Signs: Last Vital Signs Temp 97.9 F 01/05/24 06:29 Pulse 79 01/05/24 07:08 Resp 16 01/05/24 07:08 BP 144/59 H 01/05/24 06:29 Pulse Ox 95 01/05/24 06:29 O2 Flow Rate 0 01/05/24 06:24 Intake & Output: Intake & Output 01/02/24 01/03/24 01/04/24 01/05/24 23:59 23:59 23:59 23:59 Intake Total 1100 993.75 Output Total 150 200 Balance 950 793.75 - Lab Results Result Diagrams: 01/05/24 05:16 01/05/24 05:16 - Consultation Note Consultation Note: General Surgery Consultation Note Assessment: 1) Anemia, melena, NSAID use - suspect UGI bleed. Patient is hemodynamically stable Recommendation: 1) Transfuse to keep Hgb >7 2) NPO 3) IV PPI 4) EGD this morning Consent: Nadira has been counseled for the procedure, it's indications, risks, benefits and expected outcome as well as alternative therapies. We specifically discussed risks associated with anesthesia and insertion of the endoscope into the UGI tract which includes bleeding and/or injury to the esophagus which may require surgical intervention. Nadira understands, agrees, and consents to the proposed operative strategy and requests that we proceed with the procedure as outlined in our discussion. Salvador Francisco MD, [facility] General Surgery Service <><><><><><><><><><> Reason for Consultation Anemia, melena HPI Nadira is a 73 year old female who was well until last Monday when she started to have loose, black stools. This persisted all week and she became weak and fatigued. She also developed chilsl and fevers. She came to the ED and was found to be anemia. She was admitted to the medical Hospitalist Service, started on PPI and IV fluids. Her melena persists and her H&H decreased such that she was started on her first unit of PRBC this morning. She has remained hemodynamically stable throughout her hospital course. General Surgery was asked to assist in her evaluation and management. At the time of my evaluation, she complained of no abdominal pain, nausea, or vomiting. She admits to [facility] for knee pain. She has had routine screening for colon cancer with Cologuard but has not had a recent CS examination. There is no family history of colon cancer or colitis and she denies change in her bowel habits prior to last Monday. Past Medical History - HTN, Asthma, Pneumonia, Eczema, Osteoporosis, Depression Past Surgical History - None Family History - No cancer or colitis [place]; -Cig; - ETOH Current Medications See "Medication" section Allergies See "Allergy" section ROS Pertinent positives See HPI All other reviewed systems negative Physical Examination Vital Signs: See "Vital Signs" section BMI: 46 GENERAL APPEARANCE: Normal development, normal body habitus, normal grooming PSYCHIATRIC: AAO; Comfortable; Cooperative EYES: Pupils equal, round and reactive to light, sclera anicteric EARS, NOSE, MOUTH, THROAT: Hearing normal, Oral mucous membranes moist and without lesions; NECK: No crepitus, lymphadenopathy, or thyromegaly LUNGS: Clear to auscultation without wheezing; No use of accessory muscles to breathe CARDIOVASCULAR: Heart-NSR without murmurs; Palpable carotid arteries - no bruits; ABD: Soft, non-tender, no distension, + BS LYMPHATIC: Neck, Groin no palpable adenopathy Labs See "Labs" section Hgb 8.2->7.3->6.3 (transfusion started) Imaging CT Abd/Pelvis - duodenal C loop inflammation; dilated jejunum All images were personally reviewed by me for this encounter. Anthony Francisco MD, FACS General Surgery Service [phone]
[2024-01-05 07:56] LABS: BASOPHILS % (AUTO) 0.8 %; EOSINOPHILS # (AUTO) 0.2 10^3/uL (0.0-0.7); LYMPHOCYTES # (AUTO) 1.4 10^3/uL (1.5-3.5); LYMPHOCYTES % (AUTO) 25.6 %; MEAN CORPUSCULAR HEMOGLOBIN 28.1 pg (27.0-31.0); MEAN CORPUSCULAR HGB CONC 29.9 g/dL (32.0-36.0); MEAN CORPUSCULAR VOLUME 94.2 fL (81.0-99.0); MEAN PLATELET VOLUME 11.7 fL (7.9-10.8); MONOCYTES # (AUTO) 0.4 10^3/uL (0.0-1.0); MONOCYTES % (AUTO) 6.6 %; NEUTROPHILS # (AUTO) 3.4 10^3/uL (1.5-6.6); NEUTROPHILS % (AUTO) 63.6 %; PLT - PLATELET COUNT 213 10^3/uL (130-450); RED BLOOD COUNT 2.24 10^6/uL (4.20-5.40)
[2024-01-05 08:00] LABS: ALBUMIN 3.1 g/dL (3.2-5.5); MAGNESIUM 1.6 mg/dL (1.7-2.3)
[2024-01-05 08:06] LABS: CALCIUM 8.6 mg/dL (8.5-10.3); CREATININE 0.7 mg/dL (0.6-1.3); PHOSPHORUS 4.1 mg/dL (2.5-5.0); POTASSIUM 3.2 mmol/L (3.5-4.5)
[2024-01-05 08:08] LABS: WHITE BLOOD COUNT 5.3 x10^3/uL (4.8-10.8)
[2024-01-05 08:11] LABS: ADENOVIRUS F 40/41 Not Detected (Not Detected); ASTROVIRUS Not Detected (Not Detected); C DIFFICILE TOXIN A/B Not Detected (Not Detected); CAMPYLOBACTER Not Detected (Not Detected); CRYPTOSPORIDIUM Not Detected (Not Detected); CYCLOSPORA CAYETANENSIS Not Detected (Not Detected); ENTAMOEBA HISTOLYTICA Not Detected (Not Detected); ENTEROAGGREGATIVE E COLI Not Detected (Not Detected); ENTEROPATHOGENIC E COLI Not Detected (Not Detected); ENTEROTOXIGENIC E COLI Not Detected (Not Detected); GIARDIA LAMBLIA Not Detected (Not Detected); NOROVIRUS GI/GII Not Detected (Not Detected); PLESIOMONAS SHIGELLOIDES Not Detected (Not Detected); ROTAVIRUS A Not Detected (Not Detected); SALMONELLA Not Detected (Not Detected); SAPOVIRUS Not Detected (Not Detected); SHIGA-TOXIN-PRODUCING E COLI Not Detected (Not Detected); SHIGELLA/ENTEROINVASIVE E COLI Not Detected (Not Detected); VIBRIO Not Detected (Not Detected); VIBRIO CHOLERAE Not Detected (Not Detected); YERSINIA ENTEROCOLITICA Not Detected (Not Detected)
[2024-01-05] MEDS ORDERED: PROPOFOL 200 MG/20 ML VIAL IVP ONE (08:15)
[2024-01-05] MEDS ORDERED: SUCCINYLCHOLINE 200 MG/10 ML VIAL ONE (08:15)
[2024-01-05] MEDS ORDERED: EPINEPHrine 1 MG/ML AMP ONE (08:21)
[2024-01-05] MEDS ORDERED: THROMBIN (RECOMBINANT) 5,000 UNIT VIAL TOP ONE (08:22)
[2024-01-05] MEDS: CITALOPRAM HYDROBROMIDE 20 MG TABLET PO SCH (08:23)
[2024-01-05] MEDS: EPINEPHrine 1 MG/ML AMP IJ ONE ×2 (09:07)
[2024-01-05] MEDS ORDERED: MAG HYDROX/AL HYDROX/SIMETH 30 ML UDC PO PRN (09:28)
--- NOTE | 2024-01-05 09:30 | ANESTHESIA ---
Pre-Anesthesia VS, & Labs - Diagnosis Upper GI Bleed - Procedure EGD Vital Signs: Temp Pulse Resp BP Pulse Ox O2 Flow Rate 36.6 C 60 14 157/68 H 100 0 01/05/24 09:22 01/05/24 09:22 01/05/24 09:22 01/05/24 09:22 01/05/24 09:22 01/05/24 06:24 Height: 5 ft Weight (kg): 107.5 kg Body Mass Index: 46.3 BMI Classification: Morbidly Obese - Is Patient ?: No - Lab Results Current Lab Results: Laboratory Tests 01/05/24 05:16: Vitamin B12 129 L 01/05/24 05:16: Sodium 140, Potassium 3.2 L, Chloride 110, Carbon Dioxide 27, Anion Gap 3.0 L, BUN 27 H, Creatinine 0.7, Estimated GFR (MDRD) 82 L, Glucose 95, Calcium 8.6, Phosphorus 4.1, Magnesium 1.6 L, Albumin 3.1 L 01/05/24 05:16: WBC 5.3, RBC 2.24 L, Hgb TNP, Hct TNP, MCV 94.2, MCH 28.1, MCHC 29.9 L, RDW 14.0, Plt Count 213, MPV 11.7 H, Neut # (Auto) 3.4, Lymph # (Auto) 1.4 L, Mcdonald # (Auto) 0.4, Eos # (Auto) 0.2, Baso # (Auto) 0.0, Absolute Nucleated RBC 0.00, Nucleated RBC % 0.0 01/05/24 05:16: Hgb 6.3 L*, Hct 20.8 L 01/04/24 20:15: Hgb 7.3 L, Hct 22.9 L 01/04/24 18:49: Blood Type A POSITIVE, Antibody Screen NEGATIVE, Crossmatch IS Only See Detail 01/04/24 13:11: Blood Type Recheck A POSITIVE 01/04/24 13:11: Sodium 138, Potassium 3.6, Chloride 106, Carbon Dioxide 26, An ion Gap 6.0, BUN 39 H, Creatinine 0.7, Estimated GFR (MDRD) 82 L, Glucose 113 H, Calcium 9.3, Magnesium 1.7, Total Bilirubin 0.4, AST 7 L, ALT 5 L, Alkaline Phosphatase 49, Total Protein 6.0 L, Albumin 3.9, Globulin 2.1, Albumin/Globulin Ratio 1.9, Lipase 38 01/04/24 13:11: WBC 6.7, RBC 2.87 L, Hgb 8.3 L, Hct 26.2 L, MCV 91.3, MCH 28.9, MCHC 31.7 L, RDW 13.8, Plt Count 276, MPV 11.0 H, Neut # (Auto) 4.9, Lymph # (Auto) 1.2 L, Mcdonald # (Auto) 0.4, Eos # (Auto) 0.1, Baso # (Auto) 0.0, Absolute Nucleated RBC 0.00, Nucleated RBC % 0.0 Fish Bones: 01/05/24 05:16 01/05/24 05:16 Home Medications and Allergies Active Medications Acetaminophen (Acetaminophen 325 Mg Tablet) 650 mg PO Q4HR PRN PRN Reason: Pain 1 to 4, or Fever Acetaminophen (Acetaminophen 325 Mg Tablet) 650 mg PO ONCE PRN PRN Reason: HGB < 7.0 Prior TO TRANSFUSION Stop: 01/08/24 18:36 Hydrocodone Bitart/Acetaminophen (Hydrocod/Acetam 5/325 Mg Tablet) 1 tab PO Q4HR PRN PRN Reason: Pain 5 to 7 Last Admin: 01/04/24 19:38 Dose: 1 tab Albuterol/Ipratropium (Ipratropium/Albuterol 3 Ml Neb) 3 ml INH Q6HR PRN PRN Reason: Wheezing Budesonide (Budesonide 0.5 Mg/2 Ml Neb) 0.5 mg INH RTBID [facility] Last Admin: 01/05/24 07:06 Dose: 0.5 mg Citalopram Hydrobromide (Citalopram Hydrobromide 20 Mg Tablet) 40 mg PO DAILY [facility] Last Admin: 01/05/24 08:23 Dose: 40 mg Diphenhydramine HCl (Diphenhydramine 25 Mg Capsule) 25 mg PO ONCE PRN PRN Reason: HGB < 7.0 Prior TO TRANSFUSION Stop: 01/08/24 18:36 Formoterol Fumarate (Formoterol Fumarate Neb 20 Mcg/2 Ml) 20 mcg INH RTBID [facility] Last Admin: 01/05/24 07:06 Dose: 20 mcg Gabapentin (Gabapentin 300 Mg Capsule) 600 mg PO TID [facility] Last Admin: 01/05/24 05:51 Dose: 600 mg Hydromorphone HCl (Hydromorphone 0.5 Mg/0.5 Ml Syringe) 0.5 mg IVP Q2H PRN PRN Reason: Pain 8 to 10 Sodium Chloride (Normal Saline 0.9%) 1,000 mls @ 125 mls/hr IV .Q8H [facility] Last Admin: 01/05/24 03:36 Dose: 125 mls/hr Levothyroxine Sodium (Levothyroxine 125 Mcg Tablet) 125 mcg PO QDAC [facility] Last Admin: 01/05/24 06:56 Dose: 125 mcg Ondansetron HCl (Ondansetron 4 Mg/2 Ml Vial) 4 mg IVP Q6HR PRN PRN Reason: Nausea / Vomiting Pantoprazole Sodium (Pantoprazole 40 Mg Vial) 40 mg IVP BID [facility] Last Admin: 01/05/24 08:23 Dose: 40 mg Sodium Chloride (Sodium Chloride Flush 0.9% 10 Ml Syringe) 10 ml IVP PRN PRN PRN Reason: NEEDED PER PROVIDER ORDERS Last Admin: 01/04/24 19:39 Dose: 10 ml Sodium Chloride (Sodium Chloride Flush 0.9% 10 Ml Syringe) 10 ml IVP 0100,0900,1700 [facility] Last Admin: 01/05/24 08:23 Dose: Not Given Citalopram Hydrobromide [Citalopram HBr] 40 mg PO DAILY 10/24/22 Fluticasone Propion/Salmeterol [Advair 500-50 Diskus] 1 puffs IH DAILY 10/24/22 Gabapentin [Neurontin] 600 mg PO TID 10/24/22 Levothyroxine [Synthroid] 125 mcg PO QDAC 10/24/22 Losartan Potassium [Cozaar] 100 mg PO DAILY 10/24/22 Meloxicam [Mobic] 15 mg PO DAILY 10/24/22 Montelukast [Singulair] 10 mg PO QPM 10/24/22 Allergies/Adverse Reactions: Allergies Allergy/AdvReac Type Severity Reaction Status Date / Time amoxicillin trihydrate * Allergy Nausea Verified 01/04/24 12:31 [From Augmentin] potassium clavulanate * Allergy Nausea Verified 01/04/24 12:31 [From Augmentin] Anes History & Medical History - Medical History Cardiovascular: reports: Hypertension Pulmonary: reports: Asthma, Pneumonia Musculoskeletal: reports: Osteoarthritis Skin: reports: Eczema Smoking Status: Never smoker Exam General: Alert, Oriented x3, Cooperative Dental: WNL Mouth Openin Fingerbreadth Mallampati classification: II Thyromental Distance: 4-6 cm Plan Anesthesia Type: General Consent for Procedure(s) Verified and Reviewed: Yes Code Status: Attempt Resuscitation ASA classification: 3-Severe systemic disease Is this case an emergency?: Yes
--- NOTE | 2024-01-05 09:39 | OPERATIVE REPORT ---
Operative Report - General Admit Date: 01/04/24 - Other Other Information/Narrative: General Surgery Brief Op Note - See Provation for details Procedure: EGD with epi injection of oozing duodenal ulcer Assessment: 1) Duodenal ulcer without visible vessel but with slow ooze of blood 2) Mild gastritis 3) Esophagus normal except for small sliding hiatal hernia Recommendations: 1) Continue IV PPI as in-patient and orally for 6-8 weeks as out-patient 2) Mylanta 30 ml orally Q 6 hours for next 72 hr 3) Carafate 1 Gm orally QID x 7 days 4) Avoid NSAID's 5) Serial H&H and transfuse to keep Hgb >7 gm/dL 6) Repeat EGD if clinical or lab evidence of continued bleed 7) Surgery will follow Salvador Francisco MD, FACS General Surgery Service
--- NOTE | 2024-01-05 11:03 | ANESTHESIA POST OP EVALUATION ---
Anesthesia Post Eval - Post Anesthesia Eval Vitals: Last Vital Signs Temp 36.6 C 01/05/24 09:22 Pulse 60 01/05/24 09:22 Resp 14 01/05/24 09:22 BP 157/68 H 01/05/24 09:22 Pulse Ox 100 01/05/24 09:22 O2 Flow Rate 0 01/05/24 06:24 CV Function Including HR & BP: Stable Pain Control: Satisfactory Nausea & Vomiting: Negative Mental Status: Baseline Respiratory Status: Airway Patent Hydration Status: Satisfactory Anesthesia Complications: None
--- NOTE | 2024-01-05 11:09 | PHARMACY PROGRESS NOTE ---
- Best Possible Medication History Admit Date and Time: 01/04/24 1820 Processed by: Pharmacy Medication History completed: Yes Patient Interview: Completed Secondary Source(s): Written medication list, Spouse/Significant other, Pharmacy records, Insurance records As the person ultimately responsible for medication therapy, providers are able to order a medication from an existing home medication list in [facility] via the "Reconcile Routine" prior to Confirmation of that medication by patient support representative. Such practice is discouraged except when the physician, in their clinical judgment, deems that a medical need exists for a medication without regard to previous use.
[2024-01-05 12:26] LABS: HCT - HEMATOCRIT 23.9 % (37.0-47.0); HGB - HEMOGLOBIN 7.4 g/dL (12.0-16.0)
[2024-01-05] MEDS: SUCRALFATE 1 GM/10 ML UDC PO SCH (12:34)
--- NOTE | 2024-01-05 15:37 | PROVIDER PROGRESS NOTE ---
Subjective - Prog Note Date Prog Note Date: 01/05/24 Prog Note Time: 15:35 - Subjective Pt reports feeling: Improved Subjective: The patient dropped her hemoglobin 2 g overnight. She was seen by Dr. Francisco this morning who took her for upper endoscopy. She was found to have a duodenal ulcer that was slowly oozing. She also was found to have mild gastritis and a small hiatal hernia. She has received blood and is feeling a little stronger. At the time of my visit she denies fever or shaking chills. No chest pain or heart palpitations. No nausea or vomiting. She says her diarrhea has resolved. No urinary complaints. Current Medications - Current Medications Current Medications: Tylenol 650 mg p.o. every 4 hours Hydrocodone 5/325 mg p.o. every 4 hours as needed pain Mylanta +30 mL p.o. every 6 hours DuoNebs 3 mL every 6 hours as needed wheezing Pulmicort 0.5 mg inhaled twice daily Citalopram 40 mg daily Performa mist 20 mcg twice daily Gabapentin 600 mg p.o. 3 times daily Hydromorphone 0.5 mg IV every 2 hours as needed severe pain Synthroid 125 mcg daily Zofran 4 mg IV every 6 hours as needed Protonix 40 mg IV twice daily Carafate 1 g p.o. 4 times daily Objective - Vital Signs/Intake & Output Reviewed Vital Signs: Yes Vital Signs: Vital Signs x48h Temp Pulse Resp BP Pulse Ox 01/05/24 15:19 36.7 C 62 18 148/63 H 94 01/05/24 12:30 36.6 C 62 16 165/69 H 96 01/05/24 09:22 36.6 C 60 14 157/68 H 100 01/05/24 08:11 36.7 C 65 20 149/69 H 96 Intake & Output: Intake & Output 01/02/24 01/03/24 01/04/24 01/05/24 23:59 23:59 23:59 23:59 Intake Total 1100 1993.75 Output Total 150 600 Balance 950 1393.75 - Objective General Appearance: positive: No acute distress, Other (The patient is morbidly obese) Eyes Bilateral: positive: Normal inspection ENT: positive: ENT inspection nml Neck: positive: Nml inspection Respiratory: positive: Chest non-tender, No respiratory distress, Other (Her lungs sound clear however she is diminished in the lower bases bilaterally) Cardiovascular: positive: Regular rate & rhythm, No murmur, No gallop. negative: Friction rub Abdomen: positive: Other (Obese. Soft. Nontender to palpation. She has positive bowel sounds) Skin: positive: Color nml, No rash, Warm, Dry Extremities: positive: Non-tender, Full ROM Neurologic/Psychiatric: positive: Oriented x3, CN's nml (2-12) - Lab Results Fish Bones: 01/05/24 12:17 01/05/24 05:16 Other Labs: Lab Results x24hrs 01/05/24 01/05/24 01/05/24 Range/Units 12:17 05:16 05:16 WBC (4.8-10.8) x10^3/uL RBC (4.20-5.40) 10^6/uL Hgb 7.4 L (12.0-16.0) g/dL Hct 23.9 L (37.0-47.0) % MCV (81.0-99.0) fL MCH (27.0-31.0) pg MCHC (32.0-36.0) g/dL RDW (12.0-15.0) % Plt Count (130-450) 10^3/uL MPV (7.9-10.8) fL Neut # (Auto) (1.5-6.6) 10^3/uL Lymph # (Auto) (1.5-3.5) 10^3/uL [place] # (Auto) (0.0-1.0) 10^3/uL Eos # (Auto) (0.0-0.7) 10^3/uL Baso # (Auto) (0.0-0.1) 10^3/uL Absolute Nucleated RBC x10^3/uL Nucleated RBC % /100WBC Sodium 140 (135-145) mmol/L Potassium 3.2 L (3.5-4.5) mmol/L Chloride 110 (101-111) mmol/L Carbon Dioxide 27 (21-32) mmol/L Anion Gap 3.0 L (6-13) BUN 27 H (6-20) mg/dL Creatinine 0.7 (0.6-1.3) mg/dL Estimated GFR (MDRD) 82 L (>89) Glucose 95 (74-104) mg/dL Calcium 8.6 (8.5-10.3) mg/dL Phosphorus 4.1 (2.5-5.0) mg/dL Magnesium 1.6 L (1.7-2.3) mg/dL Albumin 3.1 L (3.2-5.5) g/dL Vitamin B12 129 L (180-914) pg/mL Urine Color Urine Clarity (CLEAR) Urine pH (5.0-7.5) PH Ur Specific [place] (1.002-1.030) Urine Protein (NEGATIVE) mg/dL Urine Glucose (UA) (NEGATIVE) mg/dL Urine Ketones (NEGATIVE) mg/dL Urine Occult Blood (NEGATIVE) Urine Nitrite (NEGATIVE) Urine Bilirubin (NEGATIVE) Urine Urobilinogen (NORMAL) E.U./dL Ur Leukocyte Esterase (NEGATIVE) Urine RBC (0-5) /HPF Urine WBC (0-5) /HPF Ur Squamous Epith Cells (<= Few) Urine Bacteria (None Seen) /HPF Urine Culture Comments Stl C. cayetanensis PCR (Not Detected) Stool Rotavirus A PCR (Not Detected) Stl Adenov F 40/41 PCR (Not Detected) Stool Astrovirus (PCR) (Not Detected) Stool Campylobacter PCR (Not Detected) Stl C. diff Tox B Gene (NEGATIVE) Stl C. diff Tox A/B PCR (Not Detected) Stool Cryptosporidium PCR (Not Detected) Stl Sh Tox Pr E STEC PCR (Not Detected) Stool E coli O157 PCR (Not Detected) Stl Enterotoxigenic E PCR (Not Detected) Stool EPEC (PCR) (Not Detected) Stl E. histolytica PCR (Not Detected) Stool Giardia Lamblia PCR (Not Detected) Stl P. shigelloides PCR (Not Detected) Stool Salmonella PCR (Not Detected) Stool Sapovirus (PCR) (Not Detected) Stl Shigella/EIEC PCR (Not Detected) St Y.enterocolitica PCR (Not Detected) Stool Vibrio (PCR) (Not Detected) Stl Vibrio cholerae PCR (Not Detected) Stl Enteroaggr Ecoli PCR (Not Detected) Stl Norovirus GI/GII PCR (Not Detected) Blood Type Blood Type Recheck Antibody Screen Crossmatch IS Only 07/19/24 07/19/24 07/18/24 Range/Units 05:16 05:16 22:05 WBC 5.3 (4.8-10.8) x10^3/uL RBC 2.24 L (4.20-5.40) 10^6/uL Hgb TNP 6.3 L* (12.0-16.0) g/dL Hct TNP 20.8 L (37.0-47.0) % MCV 94.2 (81.0-99.0) fL MCH 28.1 (27.0-31.0) pg MCHC 29.9 L (32.0-36.0) g/dL RDW 14.0 (12.0-15.0) % Plt Count 213 (130-450) 10^3/uL MPV 11.7 H (7.9-10.8) fL Neut # (Auto) 3.4 (1.5-6.6) 10^3/uL Lymph # (Auto) 1.4 L (1.5-3.5) 10^3/uL [place] # (Auto) 0.4 (0.0-1.0) 10^3/uL Eos # (Auto) 0.2 (0.0-0.7) 10^3/uL Baso # (Auto) 0.0 (0.0-0.1) 10^3/uL Absolute Nucleated RBC 0.00 x10^3/uL Nucleated RBC % 0.0 /100WBC Sodium (135-145) mmol/L Potassium (3.5-4.5) mmol/L Chloride (101-111) mmol/L Carbon Dioxide (21-32) mmol/L Anion Gap (6-13) BUN (6-20) mg/dL Creatinine (0.6-1.3) mg/dL Estimated GFR (MDRD) (>89) Glucose (74-104) mg/dL Calcium (8.5-10.3) mg/dL Phosphorus (2.5-5.0) mg/dL Magnesium (1.7-2.3) mg/dL Albumin (3.2-5.5) g/dL Vitamin B12 (180-914) pg/mL Urine Color YELLOW Urine Clarity HAZY (CLEAR) Urine pH 6.0 (5.0-7.5) PH Ur Specific [place] <=1.005 (1.002-1.030) Urine Protein NEGATIVE (NEGATIVE) mg/dL Urine Glucose (UA) NEGATIVE (NEGATIVE) mg/dL Urine Ketones NEGATIVE (NEGATIVE) mg/dL Urine Occult Blood TRACE-LYSE (NEGATIVE) Urine Nitrite NEGATIVE (NEGATIVE) Urine Bilirubin NEGATIVE (NEGATIVE) Urine Urobilinogen 0.2 (NORMAL) (NORMAL) E.U./dL Ur Leukocyte Esterase NEGATIVE (NEGATIVE) Urine RBC 0-5 (0-5) /HPF Urine WBC 0-3 (0-5) /HPF Ur Squamous Epith Cells FEW Squamous (<= Few) Urine Bacteria Rare (None Seen) /HPF Urine Culture Comments NOT INDICATED Stl C. cayetanensis PCR (Not Detected) Stool Rotavirus A PCR (Not Detected) Stl Adenov F 40/41 PCR (Not Detected) Stool Astrovirus (PCR) (Not Detected) Stool Campylobacter PCR (Not Detected) Stl C. diff Tox B Gene (NEGATIVE) Stl C. diff Tox A/B PCR (Not Detected) Stool Cryptosporidium PCR (Not Detected) Stl Sh Tox Pr E STEC PCR (Not Detected) Stool E coli O157 PCR (Not Detected) Stl Enterotoxigenic E PCR (Not Detected) Stool EPEC (PCR) (Not Detected) Stl E. histolytica PCR (Not Detected) Stool Giardia Lamblia PCR (Not Detected) Stl P. shigelloides PCR (Not Detected) Stool Salmonella PCR (Not Detected) Stool Sapovirus (PCR) (Not Detected) Stl Shigella/EIEC PCR (Not Detected) St Y.enterocolitica PCR (Not Detected) Stool Vibrio (PCR) (Not Detected) Stl Vibrio cholerae PCR (Not Detected) Stl Enteroaggr Ecoli PCR (Not Detected) Stl Norovirus GI/GII PCR (Not Detected) Blood Type Blood Type Recheck Antibody Screen Crossmatch IS Only 01/04/24 01/04/24 01/04/24 Range/Units 20:15 18:49 13:50 WBC (4.8-10.8) x10^3/uL RBC (4.20-5.40) 10^6/uL Hgb 7.3 L (12.0-16.0) g/dL Hct 22.9 L (37.0-47.0) % MCV (81.0-99.0) fL MCH (27.0-31.0) pg MCHC (32.0-36.0) g/dL RDW (12.0-15.0) % Plt Count (130-450) 10^3/uL MPV (7.9-10.8) fL Neut # (Auto) (1.5-6.6) 10^3/uL Lymph # (Auto) (1.5-3.5) 10^3/uL [place] # (Auto) (0.0-1.0) 10^3/uL Eos # (Auto) (0.0-0.7) 10^3/uL Baso # (Auto) (0.0-0.1) 10^3/uL Absolute Nucleated RBC x10^3/uL Nucleated RBC % /100WBC Sodium (135-145) mmol/L Potassium (3.5-4.5) mmol/L Chloride (101-111) mmol/L Carbon Dioxide (21-32) mmol/L Anion Gap (6-13) BUN (6-20) mg/dL Creatinine (0.6-1.3) mg/dL Estimated GFR (MDRD) (>89) Glucose (74-104) mg/dL Calcium (8.5-10.3) mg/dL Phosphorus (2.5-5.0) mg/dL Magnesium (1.7-2.3) mg/dL Albumin (3.2-5.5) g/dL Vitamin B12 (180-914) pg/mL Urine Color Urine Clarity (CLEAR) Urine pH (5.0-7.5) PH Ur Specific [place] (1.002-1.030) Urine Protein (NEGATIVE) mg/dL Urine Glucose (UA) (NEGATIVE) mg/dL Urine Ketones (NEGATIVE) mg/dL Urine Occult Blood (NEGATIVE) Urine Nitrite (NEGATIVE) Urine Bilirubin (NEGATIVE) Urine Urobilinogen (NORMAL) E.U./dL Ur Leukocyte Esterase (NEGATIVE) Urine RBC (0-5) /HPF Urine WBC (0-5) /HPF Ur Squamous Epith Cells (<= Few) Urine Bacteria (None Seen) /HPF Urine Culture Comments Stl C. cayetanensis PCR (Not Detected) Stool Rotavirus A PCR (Not Detected) Stl Adenov F 40/41 PCR (Not Detected) Stool Astrovirus (PCR) (Not Detected) Stool Campylobacter PCR (Not Detected) Stl C. diff Tox B Gene NEGATIVE (NEGATIVE) Stl C. diff Tox A/B PCR (Not Detected) Stool Cryptosporidium PCR (Not Detected) Stl Sh Tox Pr E STEC PCR (Not Detected) Stool E coli O157 PCR (Not Detected) Stl Enterotoxigenic E PCR (Not Detected) Stool EPEC (PCR) (Not Detected) Stl E. histolytica PCR (Not Detected) Stool Giardia Lamblia PCR (Not Detected) Stl P. shigelloides PCR (Not Detected) Stool Salmonella PCR (Not Detected) Stool Sapovirus (PCR) (Not Detected) Stl Shigella/EIEC PCR (Not Detected) St Y.enterocolitica PCR (Not Detected) Stool Vibrio (PCR) (Not Detected) Stl Vibrio cholerae PCR (Not Detected) Stl Enteroaggr Ecoli PCR (Not Detected) Stl Norovirus GI/GII PCR (Not Detected) Blood Type A POSITIVE Blood Type Recheck Antibody Screen NEGATIVE Crossmatch IS Only See Detail 01/04/24 01/04/24 Range/Units 13:50 13:11 WBC (4.8-10.8) x10^3/uL RBC (4.20-5.40) 10^6/uL Hgb (12.0-16.0) g/dL Hct (37.0-47.0) % MCV (81.0-99.0) fL MCH (27.0-31.0) pg MCHC (32.0-36.0) g/dL RDW (12.0-15.0) % Plt Count (130-450) 10^3/uL MPV (7.9-10.8) fL Neut # (Auto) (1.5-6.6) 10^3/uL Lymph # (Auto) (1.5-3.5) 10^3/uL [place] # (Auto) (0.0-1.0) 10^3/uL Eos # (Auto) (0.0-0.7) 10^3/uL Baso # (Auto) (0.0-0.1) 10^3/uL Absolute Nucleated RBC x10^3/uL Nucleated RBC % /100WBC Sodium (135-145) mmol/L Potassium (3.5-4.5) mmol/L Chloride (101-111) mmol/L Carbon Dioxide (21-32) mmol/L Anion Gap (6-13) BUN (6-20) mg/dL Creatinine (0.6-1.3) mg/dL Estimated GFR (MDRD) (>89) Glucose (74-104) mg/dL Calcium (8.5-10.3) mg/dL Phosphorus (2.5-5.0) mg/dL Magnesium (1.7-2.3) mg/dL Albumin (3.2-5.5) g/dL Vitamin B12 (180-914) pg/mL Urine Color Urine Clarity (CLEAR) Urine pH (5.0-7.5) PH Ur Specific [place] (1.002-1.030) Urine Protein (NEGATIVE) mg/dL Urine Glucose (UA) (NEGATIVE) mg/dL Urine Ketones (NEGATIVE) mg/dL Urine Occult Blood (NEGATIVE) Urine Nitrite (NEGATIVE) Urine Bilirubin (NEGATIVE) Urine Urobilinogen (NORMAL) E.U./dL Ur Leukocyte Esterase (NEGATIVE) Urine RBC (0-5) /HPF Urine WBC (0-5) /HPF Ur Squamous Epith Cells (<= Few) Urine Bacteria (None Seen) /HPF Urine Culture Comments Stl C. cayetanensis PCR Not Detected (Not Detected) Stool Rotavirus A PCR Not Detected (Not Detected) Stl Adenov F 40/41 PCR Not Detected (Not Detected) Stool Astrovirus (PCR) Not Detected (Not Detected) Stool Campylobacter PCR Not Detected (Not Detected) Stl C. diff Tox B Gene (NEGATIVE) Stl C. diff Tox A/B PCR Not Detected (Not Detected) Stool Cryptosporidium PCR Not Detected (Not Detected) Stl Sh Tox Pr E STEC PCR Not Detected (Not Detected) Stool E coli O157 PCR Not applicable (Not Detected) Stl Enterotoxigenic E PCR Not Detected (Not Detected) Stool EPEC (PCR) Not Detected (Not Detected) Stl E. histolytica PCR Not Detected (Not Detected) Stool Giardia Lamblia PCR Not Detected (Not Detected) Stl P. shigelloides PCR Not Detected (Not Detected) Stool Salmonella PCR Not Detected (Not Detected) Stool Sapovirus (PCR) Not Detected (Not Detected) Stl Shigella/EIEC PCR Not Detected (Not Detected) St Y.enterocolitica PCR Not Detected (Not Detected) Stool Vibrio (PCR) Not Detected (Not Detected) Stl Vibrio cholerae PCR Not Detected (Not Detected) Stl Enteroaggr Ecoli PCR Not Detected (Not Detected) Stl Norovirus GI/GII PCR Not Detected (Not Detected) Blood Type Blood Type Recheck A POSITIVE Antibody Screen Crossmatch IS Only ABX Reporting Has patient been on IV antibiotics over the past 48 hours?: No Sepsis Event Note (H) - Evaluation Current Stage of Sepsis: Ruled out Assessment/Plan - Problem List (1) Upper GI bleed Impression: Continue 40 mg of Protonix twice daily IV. Continue Carafate and Mylanta as ordered by general surgery. General surgery recommend she remain n.p.o. today except for her medications. (2) Duodenal ulcer Impression: This is the source of her upper GI bleed. She also has gastritis. Plan as outlined above. (3) Acute blood loss anemia Impression: The patient received 2 units of packed red blood cells. Continue to monitor H&H for the next 24 hours (4) Diarrhea Impression: Resolved. She could have had a viral gastroenteritis.There was no evidence of colitis noted on her CT abdomen pelvis (5) Asthma Impression: No evidence of exacerbation. Continue home bronchodilators. She has as needed DuoNebs available as well (6) Hypertension Impression: Currently her blood pressure medication has been held due to her significant GI bleeding. Currently her blood pressure is stable with a systolic blood pressure in the 140s for now. Will likely add back her home blood pressure medications over the next day or 2. (7) Hypothyroidism Impression: Continue home dose of Synthroid (8) Moderate major depression Impression: Continue escitalopram 40 mg daily (10) Lower back pain Impression: This was documented in error. She actually has severe bilateral knee pain which is the cause of her ambulatory dysfunction and the reason she was taking so much ibuprofen. (11) Ambulatory dysfunction Impression: She will continue to work with physical therapy and Occupational Therapy during this hospitalization Disposition: Inpatient hospitalization remains necessary. The patient has had an EGD and it is recommended that she remain NPO. She is receiving IV Protonix and IV fluids at this time. We will need to successfully document that she is no longer bleeding and we will need to advance her diet prior to discharge. I suspect she will be in the hospital for another 24 to 48 hours Time spent:35 minutes
[2024-01-05] MEDS: diphenhydrAMINE 25 MG CAPSULE PO PRN (17:40)
[2024-01-05] MEDS: ACETAMINOPHEN 325 MG TABLET PO PRN (17:40)
[2024-01-05] MEDS ORDERED: hydrALAZINE INJ 20 MG/ML VIAL IVP PRN (17:48)
--- NOTE | 2024-01-05 17:58 | PROVIDER PROGRESS NOTE ---
Progress Note General Surgery Progress Note Nadira has had an uneventful afternoon. She has no abdominal pain and has not demonstrated hematemesis. Her Hgb has increased after the first unit of PRBC (6.3 -> 7.4) and she is receiving her second. She remains hemodynamically stable. Plan: Continue aggressive antacid therapy, NPO except ice chips/meds, serial H&H Salvador Francisco MD, FACS General Surgery Service
[2024-01-05] MEDS: IPRATROPIUM/ALBUTEROL 3 ML NEB INH PRN (18:52)
[2024-01-05] MEDS: FUROSEMIDE 20 MG/2 ML VIAL IVP SCH (21:00)
[2024-01-05 22:07] LABS: HCT - HEMATOCRIT 27.8 % (37.0-47.0); HGB - HEMOGLOBIN 8.7 g/dL (12.0-16.0)
[2024-01-06 05:34] LABS: BASOPHILS % (AUTO) 0.7 %; EOSINOPHILS # (AUTO) 0.3 10^3/uL (0.0-0.7); HCT - HEMATOCRIT 26.3 % (37.0-47.0); HGB - HEMOGLOBIN 8.2 g/dL (12.0-16.0); LYMPHOCYTES # (AUTO) 1.4 10^3/uL (1.5-3.5); LYMPHOCYTES % (AUTO) 24.4 %; MEAN CORPUSCULAR HEMOGLOBIN 28.3 pg (27.0-31.0); MEAN CORPUSCULAR HGB CONC 31.2 g/dL (32.0-36.0); MEAN CORPUSCULAR VOLUME 90.7 fL (81.0-99.0); MEAN PLATELET VOLUME 11.6 fL (7.9-10.8); MONOCYTES # (AUTO) 0.4 10^3/uL (0.0-1.0); MONOCYTES % (AUTO) 6.8 %; NEUTROPHILS # (AUTO) 3.6 10^3/uL (1.5-6.6); NEUTROPHILS % (AUTO) 62.8 %; PLT - PLATELET COUNT 209 10^3/uL (130-450); RED CELL DISTRIBUTION WIDTH 15.2 % (12.0-15.0); WHITE BLOOD COUNT 5.8 x10^3/uL (4.8-10.8)
[2024-01-06 06:09] LABS: ALBUMIN 3.5 g/dL (3.2-5.5); CALCIUM 8.9 mg/dL (8.5-10.3); CREATININE 0.8 mg/dL (0.6-1.3); MAGNESIUM 1.6 mg/dL (1.7-2.3); PHOSPHORUS 4.6 mg/dL (2.5-5.0); POTASSIUM 3.2 mmol/L (3.5-4.5)
[2024-01-06] MEDS: POTASSIUM CHLOR 10 MEQ/100 ML 10 MEQ/100 ML BAG IV SCH (08:15)
[2024-01-06] MEDS: LOSARTAN 50 MG TABLET PO SCH (08:15)
[2024-01-06] MEDS: MAGNESIUM SULFATE 2 GRAM 2 GM/50 ML BAG IV ONE (08:15)
--- NOTE | 2024-01-06 08:50 | PROVIDER PROGRESS NOTE ---
Subjective - Prog Note Date Prog Note Date: 01/06/24 Prog Note Time: 08:45 - Subjective Pt reports feeling: Improved Subjective: The patient states that she is feeling much better today. She feels like she is getting back to her normal self. She has had no fever or chills overnight. No chest pain or heart palpitations. No nausea or vomiting. No further diarrhea. She has not yet had a bowel movement. No urinary complaints. Of note I spoke to general surgery today who has agreed to let her try a clear liquid diet and advance her diet today. Current Medications - Current Medications Current Medications: Tylenol 650 mg p.o. every 4 hours Hydrocodone 5/325 mg p.o. every 4 hours as needed pain Mylanta +30 mL p.o. every 6 hours DuoNebs 3 mL every 6 hours as needed wheezing Pulmicort 0.5 mg inhaled twice daily Citalopram 40 mg daily Performa mist 20 mcg twice daily Gabapentin 600 mg p.o. 3 times daily Hydromorphone 0.5 mg IV every 2 hours as needed severe pain Synthroid 125 mcg daily Zofran 4 mg IV every 6 hours as needed Protonix 40 mg IV twice daily Carafate 1 g p.o. 4 times daily Objective - Vital Signs/Intake & Output Reviewed Vital Signs: Yes Vital Signs: Vital Signs x48h Pulse Resp 01/06/24 07:12 80 18 Intake & Output: Intake & Output 01/03/24 01/04/24 01/05/24 01/06/24 23:59 23:59 23:59 23:59 Intake Total 1100 2859.75 300 Output Total 150 1450 200 Balance 950 1409.75 100 - Objective General Appearance: positive: No acute distress Eyes Bilateral: positive: Normal inspection ENT: positive: ENT inspection nml Neck: positive: Nml inspection Respiratory: positive: Chest non-tender, No respiratory distress, Breath sounds nml Cardiovascular: positive: Regular rate & rhythm, No murmur, No gallop. negative: Friction rub Abdomen: positive: Non-tender, No organomegaly, Nml bowel sounds. negative: Guarding, Rebound Skin: positive: Color nml, No rash, Warm, Dry Extremities: positive: Non-tender, Full ROM Neurologic/Psychiatric: positive: Oriented x3, CN's nml (2-12) - Lab Results Fish Bones: 01/06/24 04:46 01/06/24 04:46 Other Labs: Lab Results x24hrs 01/06/24 01/06/24 01/05/24 Range/Units 04:46 04:46 22:04 WBC 5.8 (4.8-10.8) x10^3/uL RBC 2.90 L (4.20-5.40) 10^6/uL Hgb 8.2 L 8.7 L (12.0-16.0) g/dL Hct 26.3 L 27.8 L (37.0-47.0) % MCV 90.7 (81.0-99.0) fL MCH 28.3 (27.0-31.0) pg MCHC 31.2 L (32.0-36.0) g/dL RDW 15.2 H (12.0-15.0) % Plt Count 209 (130-450) 10^3/uL MPV 11.6 H (7.9-10.8) fL Neut # (Auto) 3.6 (1.5-6.6) 10^3/uL Lymph # (Auto) 1.4 L (1.5-3.5) 10^3/uL [place] # (Auto) 0.4 (0.0-1.0) 10^3/uL Eos # (Auto) 0.3 (0.0-0.7) 10^3/uL Baso # (Auto) 0.0 (0.0-0.1) 10^3/uL Absolute Nucleated RBC 0.00 x10^3/uL Nucleated RBC % 0.0 /100WBC Sodium 138 (135-145) mmol/L Potassium 3.2 L (3.5-4.5) mmol/L Chloride 105 (101-111) mmol/L Carbon Dioxide 29 (21-32) mmol/L Anion Gap 4.0 L (6-13) BUN 16 (6-20) mg/dL Creatinine 0.8 (0.6-1.3) mg/dL Estimated GFR (MDRD) 70 L (>89) Glucose 93 (74-104) mg/dL Calcium 8.9 (8.5-10.3) mg/dL Phosphorus 4.6 (2.5-5.0) mg/dL Magnesium 1.6 L (1.7-2.3) mg/dL Albumin 3.5 (3.2-5.5) g/dL Vitamin B12 (180-914) pg/mL Blood Type Antibody Screen Crossmatch IS Only 01/05/24 01/05/24 01/04/24 Range/Units 12:17 05:16 18:49 WBC (4.8-10.8) x10^3/uL RBC (4.20-5.40) 10^6/uL Hgb 7.4 L (12.0-16.0) g/dL Hct 23.9 L (37.0-47.0) % MCV (81.0-99.0) fL MCH (27.0-31.0) pg MCHC (32.0-36.0) g/dL RDW (12.0-15.0) % Plt Count (130-450) 10^3/uL MPV (7.9-10.8) fL Neut # (Auto) (1.5-6.6) 10^3/uL Lymph # (Auto) (1.5-3.5) 10^3/uL [place] # (Auto) (0.0-1.0) 10^3/uL Eos # (Auto) (0.0-0.7) 10^3/uL Baso # (Auto) (0.0-0.1) 10^3/uL Absolute Nucleated RBC x10^3/uL Nucleated RBC % /100WBC Sodium (135-145) mmol/L Potassium (3.5-4.5) mmol/L Chloride (101-111) mmol/L Carbon Dioxide (21-32) mmol/L Anion Gap (6-13) BUN (6-20) mg/dL Creatinine (0.6-1.3) mg/dL Estimated GFR (MDRD) (>89) Glucose (74-104) mg/dL Calcium (8.5-10.3) mg/dL Phosphorus (2.5-5.0) mg/dL Magnesium (1.7-2.3) mg/dL Albumin (3.2-5.5) g/dL Vitamin B12 129 L (180-914) pg/mL Blood Type A POSITIVE Antibody Screen NEGATIVE Crossmatch IS Only See Detail ABX Reporting Has patient been on IV antibiotics over the past 48 hours?: No Sepsis Event Note (H) - Evaluation Current Stage of Sepsis: Ruled out Assessment/Plan - Problem List (1) Upper GI bleed Impression: Has not gone the patient does not have any signs of further bleeding. She had upper endoscopy yesterday and was found to have a duodenal ulcer that was oozing. This was injected. She has been on twice daily IV Protonix. General surgery has indicated that we can advance her diet to a clear liquid diet and then advance as tolerated today. (2) Duodenal ulcer Impression: Continue IV Protonix while she is in the hospital. She will need 6 to 8 weeks of PPI therapy twice daily as an outpatient. (3) Acute blood loss anemia Impression: She required 2 units of packed red blood cells. Currently her hemoglobin is stable. Will continue to monitor H&H's today. (4) Diarrhea Impression: This is totally resolved. She is feeling much better (5) Asthma Impression: No evidence of exacerbation. Continue home bronchodilators (6) Hypertension Impression: Her blood pressure medication was held at the time of admission. Her systolic blood pressures in the 160s today. She takes losartan 100 mg daily at home. Will start her back on 50 mg today and likely can titrate back up to her home dose by discharge (7) Hypothyroidism Impression: Continue home dose of Synthroid (8) Moderate major depression Impression: Continue escitalopram (9) Morbid obesity Impression: Weight loss is recommended through dietary modification and exercise as tolerated (10) Bilateral knee pain Impression: This was previously documented his back pain which was not correct. She has rather significant bilateral knee pain and uses a cane at home. She had been taking quite a bit of NSAIDs which should be avoided going forward. (11) Ambulatory dysfunction Impression: She will continue to work with physical therapy while she is in the hospital. Disposition: Overall the patient is significantly improving. We are going to keep her in the hospital 1 additional day to document stability of her hemoglobin. Her diet will be slowly advanced. If she does well she likely will be discharged tomorrow morning. Time spent: 35 minutes
[2024-01-06 12:07] LABS: HCT - HEMATOCRIT 27.7 % (37.0-47.0); HGB - HEMOGLOBIN 8.6 g/dL (12.0-16.0)
[2024-01-06 20:16] LABS: HCT - HEMATOCRIT 27.6 % (37.0-47.0); HGB - HEMOGLOBIN 8.8 g/dL (12.0-16.0)
[2024-01-07 05:18] LABS: BASOPHILS % (AUTO) 0.5 %; EOSINOPHILS # (AUTO) 0.3 10^3/uL (0.0-0.7); EOSINOPHILS % (AUTO) 5.7 %; HCT - HEMATOCRIT 27.2 % (37.0-47.0); HGB - HEMOGLOBIN 8.5 g/dL (12.0-16.0); LYMPHOCYTES # (AUTO) 1.2 10^3/uL (1.5-3.5); LYMPHOCYTES % (AUTO) 20.6 %; MEAN CORPUSCULAR HEMOGLOBIN 28.7 pg (27.0-31.0); MEAN CORPUSCULAR HGB CONC 31.3 g/dL (32.0-36.0); MEAN CORPUSCULAR VOLUME 91.9 fL (81.0-99.0); MEAN PLATELET VOLUME 11.9 fL (7.9-10.8); MONOCYTES # (AUTO) 0.5 10^3/uL (0.0-1.0); MONOCYTES % (AUTO) 9.1 %; NEUTROPHILS # (AUTO) 3.6 10^3/uL (1.5-6.6); NEUTROPHILS % (AUTO) 63.7 %; PLT - PLATELET COUNT 210 10^3/uL (130-450); RED BLOOD COUNT 2.96 10^6/uL (4.20-5.40); RED CELL DISTRIBUTION WIDTH 15.1 % (12.0-15.0); WHITE BLOOD COUNT 5.6 x10^3/uL (4.8-10.8)
[2024-01-07 05:40] LABS: ALBUMIN 3.6 g/dL (3.2-5.5); CREATININE 0.8 mg/dL (0.6-1.3); MAGNESIUM 1.9 mg/dL (1.7-2.3); PHOSPHORUS 3.9 mg/dL (2.5-5.0); POTASSIUM 3.7 mmol/L (3.5-4.5)
[2024-01-07] MEDS: LOSARTAN 50 MG TABLET PO SCH (08:44)
--- NOTE | 2024-01-07 08:44 | PROVIDER PROGRESS NOTE ---
Progress Note General Surgery Progress Note Nadira remains hemodynamically stable without clinical or lab evidence of a recurrent bleed from her duodenal ulcer. She is tolerating a clear liquid diet and her oral and IV antacid therapy without difficulty. I recommend that she abstain from the use of NSAID medication and should be e valuated for an alternative therapy for her arthritis. At a minimum, if she is instructed to resume her NSAID's she should be on an oral proton pump inhibitor. I recommend that she should continue to use the Mylanta for the next 2-3 days, then only as needed for dyspepsia. She should remain on a PPI for 8-10 weeks and the Carafate, 1 Gm PO BID for 3 weeks. I do not see a need for follow-up EGD unless she develops dyspepsia or recurrent bleeding. Her H&H is stable but she may benefit from iron supplementation to reverse her anemia. I explained to her that she should expect to see black stools from the iron during the therapy if implemented. She may be advanced to a regular diet. The General Surgery Service will sign off of this case today. Please do not he sitate to contact us if you have further questions or concerns or if you wish to have us continue to follow this patient with you. Dr Chowdary ([phone]) begins surgical call tomorrow at 0700 if the surgical service is needed. Anthony Francisco MD, FACS General Surgery Service [facility]
[2024-01-07 08:52] VITALS: BP 144/66; O2SAT 95
--- NOTE | 2024-01-07 09:01 | Discharge Plan ---
Discharge Plan Problem Reviewed?: Yes Disposition: Home, Self Care Condition: Good Prescriptions: Mag Hydrox/Al Hydrox/Simeth [Mylanta Plus] 30 ml PO Q6HR PRN #1 ea PRN Reason: Indigestion Sucralfate [Carafate] 1 gm PO 0700,1100,1600,2200 #1200 ml Ferrous Sulfate [Feosol] 325 mg PO BID #60 tablet Pantoprazole Sodium 40 mg PO BID #60 tab Diet: Regular (Low residue diet for 2 weeks then slowly advance back to regular diet) Activity Restrictions: No Restrictions Shower Restrictions: No Driving Restrictions: No Assistance Devices: Cane Weight Bearing: Full Weight Health Concerns: You were admitted with an upper GI bleed due to NSAIDs. You need to not take any ibuprofen/Aleve. Your meloxicam should be held. You will need to be on Protonix for the next 3 months. At that time you need to discuss with your primary care physician if you need to continue this medication. You should take Carafate for the next 1 month. After 1 month the Carafate can be stopped. Also general surgery recommended Mylanta on a scheduled basis for the next 3 days and then use as needed thereafter. You will need close follow-up with your primary care physician and you should discuss with him ways to manage her pain. In your knees without taking NSAIDs. Follow-up with your primary care physician within the next week. Assessment: 1. Upper GI bleed due to duodenal ulcer and gastritis Continue twice daily PPI for the next 3 months. Then discussed with primary care provider what to do going forward. General surgery recommended Carafate for the next month and Mylanta on a scheduled basis for the next 3 days and then as needed thereafter. Follow a low residue diet for the next week or 2 and then slowly advance. 2. Acute blood loss anemia The patient required 2 units of packed red blood cells. Currently her hemoglobin is stable. Will send her out on iron supplementation. 3. Diarrhea This could be due to a viral gastroenteritis. Her diarrhea has totally resolved. She is feeling much better 4. Asthma No evidence of exacerbation. Continue home bronchodilators 5. Hypertension She will resume her home regimen 6. Hypothyroidism Continue home dose of Synthroid 7. Moderate major depression Continue escitalopram 8. Morbid obesity Weight loss is recommended through dietary modification and exercise as tolerated 9. Bilateral knee pain Continue to ambulate with a cane. Discussed with primary care provider additional ways to control pain. Avoid NSAIDs going forward 10. Ambulatory dysfunction Continue to ambulate with a cane No Smoking: If you smoke, Please STOP! Call for help. Follow-up with: Anastasia Ocampo ARNP [Primary Care Provider] -
--- NOTE | 2024-01-07 09:08 | DISCHARGE SUMMARY ---
Discharge Summary Admit Date: 01/04/24 Discharge Date: 01/07/24 Discharging Provider: Benjamin Keene PA-C Primary Care Provider: Anastasia NICKERSON Code Status: Do Not Attempt Resuscitation Condition at Discharge: Good Discharge Disposition: 01 Home, Self Care - DIAGNOSES Discharge Diagnoses with Status of Each Condition: 1. Upper GI bleed due to duodenal ulcer and gastritis Continue twice daily PPI for the next 3 months. Then discussed with primary ca re provider what to do going forward. General surgery recommended Carafate for the next month and Mylanta on a scheduled basis for the next 3 days and then as needed thereafter. Follow a low residue diet for the next week or 2 and then slowly advance. 2. Acute blood loss anemia The patient required 2 units of packed red blood cells. Currently her hemoglobin is stable. Will send her out on iron supplementation. 3. Diarrhea This could be due to a viral gastroenteritis. Her diarrhea has totally resolved. She is feeling much better 4. Asthma No evidence of exacerbation. Continue home bronchodilators 5. Hypertension She will resume her home regimen 6. Hypothyroidism Continue home dose of Synthroid 7. Moderate major depression Continue escitalopram 8. Morbid obesity Weight loss is recommended through dietary modification and exercise as tolerated 9. Bilateral knee pain Continue to ambulate with a cane. Discussed with primary care provider additional ways to control pain. Avoid NSAIDs going forward 10. Ambulatory dysfunction Continue to ambulate with a cane - HPI History of Present Illness: From the admission HP: The patient is an extremely pleasant 73-year-old female who is morbidly obese. Her past medical history is significant for asthma, depression, hypertension and hypothyroidism. The patient states that she has been sick since last Monday when she started having multiple episodes of black watery diarrhea. She states that she has been unable to take some of her medications that she has been nauseated and having dry heaves at home. She states that she had some fevers and chills at home as well. Today she was having continued diarrhea and her weakness was worsening so she presented to the emergency room for further evaluation and treatment. Workup in the emergency room revealed white blood cell count of 6.7, hemoglobin of 8.3. Her last recorded hemoglobin over a year ago was 13.1. Platelet level was 276. Chemistry panel was basically unremarkable other than a mildly elevated glucose level of 13. Creatinine was normal at 0.7 with a BUN of 39. Liver panel was unremarkable. The patient tested negative for C. difficile. Viral panel was negative. She had a CT scan of the abdomen and pelvis which revealed possible duodenitis. There were also findings consistent with an early partial small bowel obstruction or ileus. She also was noted to have mild bladder wall thickening. When I went to see her she is just feeling weak. She has had continued watery black diarrhea since she presented to the emergency room. She states that she takes meloxicam at home and has been supplementing with 800 mg of ibuprofen on a fairly regular basis along with her gabapentin. She states it has been difficult for her to take any of her medications recently due to the significant nausea over the past couple of days. - HOSPITAL COURSE Hospital Course: Continue with that as it does at all with Dee Alvarez started on the patient was admitted to the hospital. All NSAIDs were stopped and she was started on IV Protonix. She had a precipitous drop in hemoglobin requiring 2 units of packed red blood cells. General surgery was consulted and performed an upper endoscopy on the patient. She was found to have a duodenal ulcer which was oozing. She had gastritis and a small hiatal hernia. The duodenal ulcer was treated during the procedure. The patient remained n.p.o. for an additional day and then her diet was slowly advanced. Her hemoglobin has remained stable posttransfusion. She has been started on iron supplementation at discharge. Dr. Francisco from general surgery recommends twice daily PPI for the next 3 months. Carafate for 1 month and Mylanta on a scheduled basis for the next 3 days and then as needed after that. Will defer to the patient's primary care provider as to whether she needs referral to a GI doctor but it seems quite clear that the patient's GI bleed was caused by her NSAID use. She does have knee pain and was taking upwards of 800 mg of ibuprofen in addition to her meloxicam on a regular basis at home. At this point the patient is stabilized and it is felt safe to discharge her to home. She should follow-up with her primary care physician in 1 week. I spoke to the patient on the day of discharge and all of her questions were answered - ALLERGIES Allergies/Adverse Reactions: Allergies Allergy/AdvReac Type Severity Reaction Status Date / Time amoxicillin trihydrate * Allergy Nausea Verified 01/04/24 12:31 [From Augmentin] potassium clavulanate * Allergy Nausea Verified 01/04/24 12:31 [From Augmentin] - MEDICATIONS Home Medications: Ambulatory Orders Medication Instructions Recorded Confirmed Citalopram Hydrobromide 40 mg PO DAILY 10/24/22 01/05/24 [Citalopram HBr] Fluticasone Propion/Salmeterol 1 puffs IH BID 10/24/22 01/05/24 [Advair 500-50 Diskus] Gabapentin [Neurontin] 600 mg PO TID 10/24/22 01/05/24 Losartan Potassium [Cozaar] 100 mg PO DAILY 10/24/22 01/05/24 Albuterol Sulfate [Albuterol 2 puffs IH QID PRN 01/05/24 01/05/24 Sulfate Hfa] Levothyroxine [Synthroid] 250 mcg PO TU 01/05/24 01/05/24 Ferrous Sulfate [Feosol] 325 mg PO BID #60 tablet 01/07/24 Losartan [Cozaar] 100 mg PO DAILY tab 01/07/24 Mag Hydrox/Al Hydrox/Simeth 30 ml PO Q6HR PRN #1 ea 01/07/24 [Mylanta Plus] Pantoprazole Sodium 40 mg PO BID #60 tab 01/07/24 Sucralfate [Carafate] 1 gm PO 0700,1100,1600,2200 #1200 01/07/24 ml - PHYSICAL EXAM AT DISCHARGE General Appearance: positive: No acute distress Eyes Bilateral: positive: Normal inspection ENT: positive: ENT inspection nml Neck: positive: Nml inspection Respiratory: positive: Chest non-tender, No respiratory distress, Breath sounds nml Cardiovascular: positive: Regular rate & rhythm, No murmur, No gallop. negative: Friction rub Abdomen: positive: Non-tender, Nml bowel sounds, No distention. negative: Guarding, Rebound Skin: positive: Color nml, No rash, Warm, Dry Extremities: positive: Non-tender, Full ROM Neurologic/Psychiatric: positive: Oriented x3, CN's nml (2-12) - LABS Result Diagrams: 01/07/24 04:45 01/07/24 04:45 - SEPSIS Current Stage of Sepsis: Ruled out - FOLLOW UP Follow Up: The patient should follow-up with her primary care provider and not to fly [employer] in 1 week - TIME SPENT Time Spent in Discharge (Minutes): 45
== END 2024-01-07 10:10 | disposition home or self-care (01) | DRG 378 ==
LOC: ED 12:15 → MS2 18:20
PROVIDERS: ADMIT Physician Assistant; ATTEND Physician Assistant
PROC: 30233N1 Transfusion of Nonautologous Red Blood Cells into Peripheral Vein, Percutaneous Approach (ICD-10-PCS; 2024-01-05)
PROC: 0W3P8ZZ Control Bleeding in Gastrointestinal Tract, Via Natural or Artificial Opening Endoscopic (ICD-10-PCS; principal; 2024-01-05 08:45)
DX: K29.81 Duodenitis with bleeding (principal); D64.9 Anemia, unspecified; Z20.818 Contact with and (suspected) exposure to other bacterial communicable diseases; Z20.822 Contact with and (suspected) exposure to COVID-19; Z20.828 Contact with and (suspected) exposure to other viral communicable diseases; K26.4 Chronic or unspecified duodenal ulcer with hemorrhage; D62 Acute posthemorrhagic anemia; Z68.42 Body mass index [BMI] 45.0-49.9, adult; K29.71 Gastritis, unspecified, with bleeding; A08.4 Viral intestinal infection, unspecified; J45.909 Unspecified asthma, uncomplicated; I10 Essential (primary) hypertension; E03.9 Hypothyroidism, unspecified; F32.9 Major depressive disorder, single episode, unspecified; E66.01 Morbid (severe) obesity due to excess calories; M25.561 Pain in right knee; M25.562 Pain in left knee; R73.9 Hyperglycemia, unspecified; K44.9 Diaphragmatic hernia without obstruction or gangrene; R26.9 Unspecified abnormalities of gait and mobility; Z66 Do not resuscitate; Z79.890 Hormone replacement therapy; Z79.899 Other long term (current) drug therapy
CPT/HCPCS: 36415; 74177; 80053; 80069; 81001; 82272; 82607; 83690; 83735; 85014; 85018; 85025; 86850; 86900; 86901; 86920; 87493; 87507; 87633; 94640; 96361; 96374; 99285; A9270; J0330; J7626; J8499; P9016; Q9967; 87086

== ENCOUNTER 2024-02-12 08:51 | Outpatient (CLI) | payer MEDICARE, MEDICAID ==
--- NOTE | 2024-02-13 11:18 | XRAY Report ---
PROCEDURE: Chest 2V INDICATIONS: RESPORATORY CRACKLES TECHNIQUE: 2 views of the chest were obtained. COMPARISON: 10/24/2022 FINDINGS: Surgical changes and devices: None. Lungs and pleura: Hyperinflation and chronic interstitial changes Mediastinum: Mediastinal contours appear normal. Heart size is enlarged Bones and chest wall: No suspicious bony lesions. Overlying soft tissues appear unremarkable. IMPRESSION: Cardiomegaly. Chronic interstitial changes. Reviewed by: Romel New MD on 02/13/2024 10:16 AM EDINSON Approved by: Romel New MD on 02/13/2024 10:16 AM AKPASTORA Station ID: [id number]
== END 2024-02-12 08:52 | disposition home or self-care (01) ==
LOC: DI.S 08:51
PROVIDERS: ATTEND Nurse Practitioner Family
DX: R09.89 Other specified symptoms and signs involving the circulatory and respiratory systems (principal)

== ENCOUNTER 2024-03-01 08:27 | Outpatient (CLI) | payer MEDICARE, MEDICAID | END 2024-03-01 08:28 | disposition home or self-care (01) | LOC: DI 08:27 | PROVIDERS: ATTEND Nurse Practitioner Family | DX: R01.1 Cardiac murmur, unspecified (principal) | CPT/HCPCS: 93307 ==